=== PATIENT | female | born 1975 | race Caucasian/White ===

== ENCOUNTER 2017-06-29 07:40 | Outpatient (CLI) | payer SELFPAY | END 2017-06-29 07:41 | disposition home or self-care (01) | LOC: BICMAMMO 07:40 | PROVIDERS: ATTEND Family Medicine | DX: Z12.31 Encounter for screening mammogram for malignant neoplasm of breast (principal) | CPT/HCPCS: 77067; G0202 ==

== ENCOUNTER 2017-07-29 09:54 | Outpatient (CLI) | payer OTHER | END 2017-07-29 09:55 | disposition home or self-care (01) | LOC: BICMAMMO 09:54 | PROVIDERS: ATTEND Family Medicine | DX: R92.8 Other abnormal and inconclusive findings on diagnostic imaging of breast (principal) | CPT/HCPCS: G0206-RT; G0279 ==

== ENCOUNTER 2017-08-22 09:14 | Outpatient (CLI) | payer OTHER ==
[2017-08-22 10:14] LABS: Hemoglobin 12.9 g/dL (12.0-16.0); Mean Corpuscular HGB CONC 32.5 g/dL (32.0-36.0); Mean Corpuscular Hemoglobin 29.5 pg (27.0-31.0); Mean Corpuscular Volume 90.9 fl (81.0-99.0); Mean Platelet Volume 8.6 fL (7.4-10.4); Platelet Count 304 thou/uL (130-400); Red Blood Cell (RBC) Count 4.36 mill/uL (4.20-5.40); White Blood Cell (WBC) Count 9.5 thou/uL (4.8-10.8)
[2017-08-22 10:21] LABS: INR-International Normal Ratio 0.9; PTT 27.9 SEC (22.9-36.1); Prothrombin Time 12.5 SEC (12.0-14.7)
[2017-08-22 10:24] LABS: BHCG - Serum Negative (NEGATIVE); Pregs Control Background? CLEAR/WHITE (CLR/WHITE); Pregs Control Bar Appear? YES (CONTROL BAR)
[2017-08-22 10:35] LABS: ALT (SGPT) 11 U/L (8-55); AST (SGOT) 14 U/L (5-34); Albumin 4.2 g/dL (3.5-5.0); Alkaline Phosphatase 108 U/L (40-150); Anion Gap 13 mmol/L (10-20); BUN (Urea Nitrogen) 12 mg/dL (7.0-18.7); Bilirubin, Total 0.3 mg/dL (0.2-1.2); Calc. Creatinine Clearance 0 mL/min (70-130); Calcium 9.8 mg/dL (7.8-10.44); Carbon Dioxide 28 mmol/L (22-29); Cardiac Risk 3.1 (Less than 4.5); Chloride 102 mmol/L (98-107); Cholesterol 208 mg/dl (< 200 Desired); Estimated GFR-MDRD 81; Globulin 3.4 g/dL (2.4-3.5); Glucose 89 mg/dL (70-105); HDL Cholesterol 67 mg/dL (>60 Neg Risk); LDL Cholesterol, Calculated 124 mg/dL; Potassium 4.3 mmol/L (3.5-5.1); Protein, Total 7.6 g/dL (6.0-8.3); Sodium 139 mmol/L (136-145); Triglycerides 84 mg/dL (Less than 150)
== END 2017-08-22 09:15 | disposition home or self-care (01) ==
LOC: LABBT 09:14
PROVIDERS: ATTEND Internal Medicine Cardiovascular Disease
DX: Z01.818 Encounter for other preprocedural examination (principal); R93.1 Abnormal findings on diagnostic imaging of heart and coronary circulation; R07.9 Chest pain, unspecified
CPT/HCPCS: 80053; 80061; 84703; 85027; 85610; 85730; 93005; 93010

== ENCOUNTER 2017-08-24 05:42 | Day surgery (SDC) | payer OTHER ==
[2017-08-22 09:35] VITALS: BMI 49.0
[2017-08-24] MEDS ORDERED: Verapamil 5 MG/2 ML VIAL ONE (06:33)
[2017-08-24] MEDS ORDERED: Nitroglycerin 100MG/250ML BOT 250 ML ONE (06:33)
[2017-08-24] MEDS ORDERED: Heparin 10,000 UNITS/1 ML VIAL ONE (06:33)
[2017-08-24] MEDS ORDERED: Fentanyl 100 MCG/2 ML VIAL ONE (07:52)
[2017-08-24] MEDS ORDERED: Midazolam HCl 2 mg/2 ml Vial ONE (07:52)
== END 2017-08-24 13:21 | disposition home or self-care (01) ==
LOC: CCL 05:42
PROVIDERS: ATTEND Internal Medicine Cardiovascular Disease
DX: R07.89 Other chest pain (principal); R93.1 Abnormal findings on diagnostic imaging of heart and coronary circulation; I10 Essential (primary) hypertension; E66.9 Obesity, unspecified; Z68.42 Body mass index [BMI] 45.0-49.9, adult; Z98.51 Tubal ligation status; Z79.899 Other long term (current) drug therapy; Z98.891 History of uterine scar from previous surgery
CPT/HCPCS: 93458; 99152; C1769; J1644; J2250; J3010

== ENCOUNTER 2017-09-24 19:07 | Emergency (ER) | payer OTHER ==
[2017-09-24] MEDS ORDERED: Ibuprofen 200 MG TAB ONE (19:35)
--- NOTE | 2017-09-24 20:49 | RAD ---
FOUR VIEWS OF THE RIGHT KNEE 09/24/17 COMPARISON: None. HISTORY: Pain. FINDINGS: There is mild lateral compartment narrowing with osteophyte formation involving the lateral tibial pl ateau and lateral femoral condyle. There is moderate medial compartment narrowing with associated ost eophyte formation. There is moderate patellofemoral joint space narrowing and posterior patellar oste ophyte formation. No significant knee joint effusion. No displaced fracture or dislocation. IMPRESSION: Degenerative joint disease with no displaced fracture or evidence of dislocation seen. POS: [place]
== END 2017-09-24 20:20 | disposition home or self-care (01) ==
LOC: ERS 19:07
DX: M17.11 Unilateral primary osteoarthritis, right knee (principal); I10 Essential (primary) hypertension; E66.01 Morbid (severe) obesity due to excess calories; F17.210 Nicotine dependence, cigarettes, uncomplicated

== ENCOUNTER 2017-10-03 08:53 | Outpatient (CLI) | payer OTHER ==
[2017-10-03 09:46] LABS: Hemoglobin 12.6 g/dL (12.0-16.0); Mean Corpuscular HGB CONC 31.6 g/dL (32.0-36.0); Mean Corpuscular Hemoglobin 28.8 pg (27.0-31.0); Mean Corpuscular Volume 91.1 fl (81.0-99.0); Mean Platelet Volume 8.8 fL (7.4-10.4); Platelet Count 286 thou/uL (130-400); RBC Distribution Width 13.9 % (11.5-14.5); Red Blood Cell (RBC) Count 4.39 mill/uL (4.20-5.40); White Blood Cell (WBC) Count 6.8 thou/uL (4.8-10.8)
[2017-10-03 10:02] LABS: Anion Gap 10 mmol/L (10-20); BUN (Urea Nitrogen) 15 mg/dL (7.0-18.7); Calc. Creatinine Clearance 0 mL/min (70-130); Calcium 9.3 mg/dL (7.8-10.44); Carbon Dioxide 26 mmol/L (22-29); Chloride 104 mmol/L (98-107); Estimated GFR-MDRD 74; Glucose 101 mg/dL (70-105); Potassium 4.2 mmol/L (3.5-5.1); Sodium 136 mmol/L (136-145)
== END 2017-10-03 08:54 | disposition home or self-care (01) ==
LOC: LABBT 08:53
PROVIDERS: ATTEND Obstetrics & Gynecology
DX: Z01.812 Encounter for preprocedural laboratory examination (principal); N92.0 Excessive and frequent menstruation with regular cycle; N94.6 Dysmenorrhea, unspecified; N83.201 Unspecified ovarian cyst, right side; N93.9 Abnormal uterine and vaginal bleeding, unspecified
CPT/HCPCS: 80048; 85027; 86850; 86900; 86901

== ENCOUNTER 2017-10-03 09:15 | Inpatient (IN) | payer OTHER ==
--- NOTE | 2017-10-03 08:59 | HP ---
DATE OF PLANNED PROCEDURE: 10/04/2017 PREOPERATIVE DIAGNOSES: Menorrhagia, fibroid uterus and dysmenorrhea. HISTORY OF PRESENT ILLNESS: Ms. Ashley Adamson is a 42-year-old G2, P2-0-0-2, who was referred from [facility] for abnormal uterine bleeding and dysmenorrhea. The patient gives a long histor y of heavy bleeding, passing clots feeling rundown during her menstrual cycles and dysmenorrhea that prevents her from completing her activities of daily living. The patient has failed medical manageme nt with combined oral contraceptive pills as well as Depo-Provera and now strongly desires definitive management with hysterectomy. The patient has a history of bilateral tubal ligation and a known his tory of fibroid uterus. Currently during her menstrual cycle, she will use 36 super pads during the 5-day period. The patient had an endometrial biopsy completed in our office that was suggestive of a n endocervical polyp as well as weakly proliferative endometrium with no reported hyperplasia or naeem gnancy. An office ultrasound describes uterus that is 9 x 4.5 cm and endometrium is 8 mm thick at th e time of ultrasound and two normal appearing ovaries with the exception of a small simple appearing ovarian 3 cm cyst on the right ovary noted back in June. Scheduling of the patient's hysterectom y was delayed for cardiac clearance, which was completed with Dr. Rizo following the heart catheter ization and evaluation. The patient is low cardiac risk for her surgery. PAST MEDICAL HISTORY: Obesity, hypertension, and migraines. CURRENT MEDICATIONS: Amlodipine 5 mg daily, lisinopril/hydrochlorothiazide 20/25 mg 1 p.o. daily, to piramate 100 mg once a day. ALLERGIES: No known drug and no latex allergies identified. PAST SURGICAL HISTORY: section x1, bilateral tubal ligation, cholecystectomy, and heart cat heterization. SOCIAL HISTORY: The patient has a history of incarceration approximately 2-3 years ago. Does not us e alcohol or drugs. She is and smokes 1 pack or less a day. FAMILY HISTORY: Significant for hypertension in her mother, father, and sister and non-small cell ca rcinoma of the lung in her mother. OBSTETRICAL HISTORY: G2, P1 with one section and one vaginal delivery. GYNECOLOGIC HISTORY: Most recent Pap smear, ASCUS but HPV negative on 06/2017. No known history of PID or STD, current contraception, bilateral tubal ligation. REVIEW OF SYSTEMS: Negative except as stated above. PHYSICAL EXAMINATION: VITAL SIGNS: Blood pressure 124/76, weight 328 pounds with a BMI of 52, respiratory rate 18. GENERAL: No acute distress. Alert and oriented. CARDIOVASCULAR: Regular rate and rhythm. LUNGS: Nonlabored breathing. ABDOMEN: Obese, soft. No hepatosplenomegaly, no abdominal masses found on exam; however, exam is li mited by obese body habitus. GENITOURINARY: Normal external female genitalia, normal vaginal mucosa. No abnormal vaginal dischar ge, no cervical lesions. Uterus is mobile, nontender, no adnexal masses; however, exam limited by bone bitus. MUSCULOSKELETAL: Normal range of motion. NEUROLOGIC: Grossly normal, alert and oriented x3. SKIN: No rashes, clubbing or cyanosis. DIAGNOSTIC STUDIES: 1. Pap smear ASCUS HPV negative. 2. Endometrial biopsy with weakly proliferative endometrium and endocervical polyp. Ultrasound with uterus 9 x 4.5 cm with small fibroid and 3 cm right ovarian simple appearing cyst. ASSESSMENT AND PLAN: Ms. Ashley Adamson is a 42-year-old with history of tubal ligation with menorr hagia and dysmenorrhea with failed medical management and desires definitive treatment with robotic a ssist total laparoscopic hysterectomy and bilateral salpingectomy. We discussed ovarian preservation if her ovaries appear within normal limits at the time of surgery. We have discussed other medical management options including Mirena IUD and other hormonal options; however, the patient declines and requests surgery. The patient understands the risk of surgery to include, but not limited to bleedi ng, infection, damage to intraabdominal or pelvic organs, possible need for emergent laparotomy, inab ility to fully diagnose and treat all conditions at the time of surgery, possible need for future med ical and/or surgical management, possible need for blood products, antibiotics and inherent risk of a nesthesia which will be discussed with her in detail tomorrow on the day of surgery by the Anesthesia team. The patient's questions have been answered to her satisfaction, and she desires to proceed wi th the procedure as listed above.
[2017-10-03 09:40] VITALS: BMI 49.3
[2017-10-04] MEDS ORDERED: Midazolam HCl 2 mg/2 ml Vial ONE (06:03)
[2017-10-04] MEDS ORDERED: Fentanyl 250 MCG/5 ML VIAL ONE (06:03)
[2017-10-04] MEDS ORDERED: CEFAZOLIN/Water 2 GM/20 ML SYRINGE ONE (06:21)
[2017-10-04] MEDS ORDERED: Bupivacaine HCl 0.5%/Epinephrine 1:200,000/PF 30 ml Vial ONE (06:53)
[2017-10-04] MEDS ORDERED: Promethazine HCl 25 MG/ML VIAL SLOW IVP PRN (09:20)
[2017-10-04] MEDS ORDERED: Ondansetron HCl/PF 4 MG/2 ML Vial IVP PRN ×2 (09:20→12:03)
[2017-10-04] MEDS ORDERED: Promethazine HCl 25 MG/ML VIAL IM PRN ×2 (09:20→12:03)
[2017-10-04] MEDS ORDERED: Fentanyl 100 MCG/2 ML VIAL ONE ×2 (10:01→10:26)
[2017-10-04] MEDS ORDERED: Promethazine HCl 25 MG/ML VIAL ONE (10:03)
[2017-10-04] MEDS ORDERED: Ketorolac Tromethamine 30 MG/ML VIAL ONE (10:33)
--- NOTE | 2017-10-04 10:46 | OP ---
DATE OF PROCEDURE: 10/04/2017 PREOPERATIVE DIAGNOSES: 1. Menorrhagia. 2. Dysmenorrhea. 3. Morbid obesity. 4. Desires definitive surgical management. POSTOPERATIVE DIAGNOSES: 1. Menorrhagia. 2. Dysmenorrhea. 3. Morbid obesity. 4. Desires definitive surgical management. PROCEDURE PERFORMED: Robotic-assisted total laparoscopic hysterectomy with bilateral salpingectomy a nd lysis of adhesions. SURGEON: Leroy Griffith D.O. DIRECTOR INSTITUTION: [facility] M.D. ANESTHESIA: General endotracheal. URINE OUTPUT: 250 mL. ESTIMATED BLOOD LOSS: 50 mL. COMPLICATIONS: None. INTRAOPERATIVE FINDINGS: 1. Morbid obesity with central obesity. 2. Ventral hernia with omentum noted within the hernia sac, omental adhesions to the anterior abdomi nal wall, enlarged uterus, normal tubes, segments and ovaries. PROCEDURE DETAILS: The patient was taken back to the OR with IV fluids running. Once she was in the OR, she was placed in dorsal supine position and general anesthesia was obtained. Once the patient was asleep, she was placed in low dorsal lithotomy position and the abdomen and vagina were prepped a nd draped in normal fashion for gynecologic laparoscopy. A Urrutia catheter was placed into the bladde r and drained approximately 200 mL. A Geri syringe was attached to the tip of the Urrutia catheter t o use for bladder manipulation if needed during the case. An operative speculum was placed into the vagina with normal vaginal findings noted. The anterior lip of the cervix was grasped with a single tooth tenaculum and the uterus sounded to approximately 8 cm. The cervix was then serially dilated t o allow for passage of a CASE Murphy manipulator tip. The CASE Murphy manipulator was assembled with an 8 cm tip and a 4 cm cup and was placed into the vagina and uterus in normal fashion with the intrauteri ne and vaginal balloons inflated. The speculum and tenaculum were removed. The surgeon's gloves wer e changed and attention was turned to laparoscopic portion of the case. Beginning at the umbilicus, a 12 mm skin incision was made after local anesthesia was placed underneath the skin. A Veress needl e was placed into this incision and the peritoneum was insufflated without difficulty. After the per itoneal cavity was entered a bariatric link trocar was placed through this port incision into the per itoneal cavity. The laparoscope was then placed through this port. [facility] and the above findings were noted. Under direct visualization, [address] d, 3 robotic ports both right and left lower quadrant 8 mm ports and a left upper quadrant 8 mm port . These were all placed under direct visualization after the skin was injected with local anesthesia . 8 mm skin incisions were made and trocars were placed without difficulty. A right upper quadrant 11 mm assistant to the dean trocar was placed in similar fashion. Next, the robotic arms were docked to the stan ent's bedside. The #2 and 3 arms were attached to the fenestrated bipolar and monopolar cautery instr 30 Second Showcase. These instruments were advanced under direct visualization in the pelvis without difficulty. The left upper quadrant port was not attached to robotic arm and it was saved in the event that an additional third arm was needed for retraction of bowel or omentum later in the case. The procedure began with lysis of adhesions, primarily in the midline with dense omental adhesions noted into a her blas sac in the midline below the umbilicus. After the omental adhesions were taken down, the hystere ctomy portion of the procedure began. Beginning on the patient's left side, the left fallopian tube segment at the fimbriated end was elevated, grasped and dissected away from the ovary. The specimen was removed for pathologic review. Next utero-ovarian ligament was cauterized and incised, freeing t he ovary away from the uterus falling away at the left adnexa. Next, the round ligament on the patie nt's left side was cauterized, incised, and divided into anterior and posterior leafs. The anterior and posterior leaves were dissected down towards the level of the uterine artery. The uterine artery was then cauterized, incised, and divided with hemostasis noted. The anterior leaf was then taken d own towards the lower uterine segment near the cervix in the planned colpotomy site. The bladder was back filled with normal saline to allow for demarcation of the bladder flap plane from the cervix an d planned colpotomy site. Filmy adhesions were taken down between the cervicovaginal junction and pl anned colpotomy site. The bladder was then deflated and the bladder flap was created with fine disse ction technique across the cervix and planned dissection area. The bladder was gently dissected away from the planned colpotomy site. In similar fashion attention was turned to the contralateral side. The right fimbriated end was elevated off the ovary and dissected away from the ovary. The fallopi an tube segment was removed for pathologic review. The utero-ovarian ligament on the patient's right side was cauterized and divided with ovary falling away to the right pelvic sidewall, the round liga ment on the patient's right side was cauterized, incised, and divided into anterior and posterior diane fs. The broad ligament was then dissected down towards the uterine artery which was then cauterized and divided. The blood supply taken down bilaterally, the bladder flap was completed on the patient' s right side and the bladder was gently dissected away from the planned colpotomy site. The bladder was back filled one more time and the bladder noted to be well away from the planned colpotomy site a nd cuff closure. Next, the colpotomy began anteriorly with monopolar scissors. The CASE Murphy cup was immediately identified and was traced circumferentially with hemostasis noted throughout the colpoto my portion of the procedure. After the uterine specimen was freed, it was retracted into the vagina and kept there for pneumoperitoneum for the remainder of the case. The vaginal cuff and surgical ped icles was copiously irrigated. Any small areas of bleeding were controlled with Bovie cauterization. The vaginal cuff was then closed with Stratafix suture in 2 layers with hemostasis noted. The end of the vaginal cuff closure, the vaginal cuff and pedicles were irrigated again and suctioned dry. N o areas of bleeding were noted. The bladder was back filled one last time and suctioned empty with n o disruption of bladder integrity noted. A layer of Allen was applied to the vaginal cuff. The joe gical pedicles and the omentum with no areas of bleeding noted. All instruments were then removed fr om the abdominal cavity. The supraumbilical port site was closed at the fascial layer with Vicryl jorgensen ture. All 5 skin incisions were closed with Monocryl suture and dressed with Dermabond dressing. Th e patient was cleaned and dried. The vagina was inspected with no bleeding noted. The patient was t aken out of lithotomy position, extubated, and transferred to the recovery room in good condition.
[2017-10-04] MEDS ORDERED: Simethicone Chewable 80 MG TAB PO PRN (12:03)
[2017-10-04] MEDS ORDERED: Acetaminophen 325 MG TAB PO PRN (12:03)
[2017-10-04] MEDS ORDERED: Sodium Chloride 0.9% 1,000 ML IV SCH (12:03)
[2017-10-04] MEDS ORDERED: diphenhydrAMINE 25 MG CAP PO PRN (12:03)
[2017-10-04] MEDS ORDERED: Morphine 5 MG/ML SYRINGE SLOW IVP PRN (12:03)
[2017-10-04] MEDS ORDERED: Meperidine HCl/PF 25 MG/ML VIAL SLOW IVP PRN (12:03)
[2017-10-04] MEDS ORDERED: Bisacodyl 10 MG SUPP PR PRN (12:03)
[2017-10-04] MEDS ORDERED: Acetaminophen/Codeine 30-300mg Tablet PO PRN (12:03)
[2017-10-04] MEDS ORDERED: Zolpidem Tartrate 5 MG TAB PO PRN (12:03)
[2017-10-04] MEDS: Ketorolac Tromethamine 30 MG/ML VIAL IVP SCH ×3 (13:37→23:36)
[2017-10-04] MEDS ORDERED: Succinylcholine Chloride 20 MG/ML 10 ml SYRINGE FS ONE (14:58)
[2017-10-04] MEDS ORDERED: Lidocaine 1% PF 5 ML VIAL ONE (14:58)
[2017-10-04] MEDS ORDERED: Glycopyrrolate 0.2 MG/ML 5 ML SYRINGE ONE (14:58)
[2017-10-04] MEDS ORDERED: Dexamethasone 20 MG/5 ML VIAL ONE (14:58)
[2017-10-04] MEDS ORDERED: Propofol 200 MG/20 ML VIAL ONE (14:58)
[2017-10-04] MEDS ORDERED: Ondansetron HCl/PF 4 MG/2 ML Vial ONE (14:58)
[2017-10-04] MEDS: Acetaminophen/Codeine 30-300mg Tablet PO PRN ×2 (18:39→23:41)
[2017-10-04] MEDS ORDERED: Atorvastatin Calcium 20 MG TAB PO SCH (21:00)
[2017-10-05 06:04] LABS: Hemoglobin 10.8 g/dL (12.0-16.0); Mean Corpuscular HGB CONC 32.6 g/dL (32.0-36.0); Mean Corpuscular Hemoglobin 29.1 pg (27.0-31.0); Mean Corpuscular Volume 89.2 fl (81.0-99.0); Mean Platelet Volume 8.9 fL (7.4-10.4); Platelet Count 228 thou/uL (130-400); RBC Distribution Width 13.7 % (11.5-14.5); Red Blood Cell (RBC) Count 3.73 mill/uL (4.20-5.40); White Blood Cell (WBC) Count 9.4 thou/uL (4.8-10.8)
[2017-10-05] MEDS: Ketorolac Tromethamine 30 MG/ML VIAL IVP SCH (06:26)
[2017-10-05] MEDS: Acetaminophen/Codeine 30-300mg Tablet PO PRN (06:27)
--- NOTE | 2017-10-05 08:18 | PDOC.EVN ---
Event Note - Event Note Event Note: S: no concerns, doing well, eating regular food, min pain, no bleeding, passing gas and urinating well O: Vital Signs (12 hours) Temp Pulse Resp BP Pulse Ox 10/04/17 23:49 98.4 F 88 18 114/56 L 10/04/17 20:30 98.5 F 85 18 171/77 H 98 Weight Weight 315 lb Gen: NAD A and O, sitting up eating breakfast Chest: nonlabored breathing Abd: obese, NTTP, inc CIDI x 5 Ext: normal ROM A/P: POD#1 MARGO PATTERSON and MICHAEL, intraop findings discussed. Plan for DC today.
[2017-10-05 09:00] VITALS: BP 137/71; TEMP 98
[2017-10-05] MEDS ORDERED: Lisinopril/Hydrochlorothiazide 20/25 mg Tablet PO SCH (09:00)
[2017-10-05] MEDS ORDERED: Amlodipine 5 MG TAB PO SCH (09:00)
[2017-10-09] MEDS ORDERED: Ibuprofen 800 MG TAB PO SCH (22:00)
== END 2017-10-05 09:30 | disposition home or self-care (01) | DRG 742 ==
LOC: SURG A 10-04 05:41 → 3SE 10-04 11:32
PROVIDERS: ADMIT Obstetrics & Gynecology; ATTEND Obstetrics & Gynecology
PROC: 0UT98ZZ Resection of Uterus, Via Natural or Artificial Opening Endoscopic (ICD-10-PCS; principal; 2017-10-04)
PROC: 0UT78ZZ Resection of Bilateral Fallopian Tubes, Via Natural or Artificial Opening Endoscopic (ICD-10-PCS; 2017-10-04)
PROC: 0DNU4ZZ Release Omentum, Percutaneous Endoscopic Approach (ICD-10-PCS; 2017-10-04)
PROC: 8E0W8CZ Robotic Assisted Procedure of Trunk Region, Via Natural or Artificial Opening Endoscopic (ICD-10-PCS; 2017-10-04)
DX: N94.6 Dysmenorrhea, unspecified (principal); Z68.42 Body mass index [BMI] 45.0-49.9, adult; E66.01 Morbid (severe) obesity due to excess calories; N83.201 Unspecified ovarian cyst, right side; N92.0 Excessive and frequent menstruation with regular cycle; Z90.49 Acquired absence of other specified parts of digestive tract; F17.210 Nicotine dependence, cigarettes, uncomplicated
CPT/HCPCS: 36415; 85027; 88307; J2270; A4216; J0670; J1100; J1885; J2001; J2250; J2405; J2550; J2704; J3010

== ENCOUNTER 2018-04-15 18:49 | Observation (INO) | payer MEDICAID, OTHER ==
[2018-04-15 19:49] LABS: #Basophils 0.1 thou/uL (0.0-0.2); #Eosinphils 0.1 thou/uL (0.0-0.7); #Lymphocytes 1.7 thou/uL (1.20-3.40); #Monocytes 0.4 thou/uL (0.11-0.59); #Neutrophils 6.4 thou/uL (1.40-6.50); %Basophils 0.6 % (0.0-1.0); %Lymphocytes 19.1 % (21.0-51.0); %Monocytes 4.9 % (0.0-10.0); %Neutrophils 74.4 % (42.0-75.0); Hemoglobin 14.1 g/dL (12.0-16.0); Mean Platelet Volume 8.8 fL (7.4-10.4); Platelet Count 234 thou/uL (130-400); RBC Distribution Width 12.7 % (11.5-14.5); Red Blood Cell (RBC) Count 4.55 mill/uL (4.20-5.40); White Blood Cell (WBC) Count 8.6 thou/uL (4.8-10.8)
--- NOTE | 2018-04-15 19:49 | RAD ---
PORTABLE UPRIGHT FRONTAL CHEST RADIOGRAPH 04/15/18 COMPARISON: 10/30/14 HISTORY: Diaphoresis, shortness of breath and dizziness. FINDINGS: The lungs are clear. Heart and mediastinal contours are unremarkable. IMPRESSION: No acute findings. POS: [facility]
[2018-04-15] MEDS ORDERED: Nitroglycerin 2% Ointment 1 INCH/1 GM Packet ONE (20:03)
[2018-04-15] MEDS ORDERED: Acetaminophen 500 MG TAB ONE (20:03)
[2018-04-15 20:11] LABS: ALT (SGPT) 16 U/L (8-55); AST (SGOT) 18 U/L (5-34); Alkaline Phosphatase 110 U/L (40-150); Anion Gap 14 mmol/L (10-20); BUN (Urea Nitrogen) 11 mg/dL (7.0-18.7); Bilirubin, Total 0.4 mg/dL (0.2-1.2); CK (CPK) 131 U/L (29-168); Calc. Creatinine Clearance 0 mL/min (70-130); Calcium 9.4 mg/dL (7.8-10.44); Carbon Dioxide 26 mmol/L (22-29); Chloride 105 mmol/L (98-107); Estimated GFR-MDRD 54; Globulin 3.3 g/dL (2.4-3.5); Glucose 104 mg/dL (70-105); Lipase 22 U/L (8-78); Potassium 3.5 mmol/L (3.5-5.1); Protein, Total 7.3 g/dL (6.0-8.3); Sodium 141 mmol/L (136-145)
[2018-04-15 20:15] LABS: Troponin I Less than 0.010 ng/mL (< 0.028)
[2018-04-15] MEDS ORDERED: Morphine 2 MG/ML SYRINGE ONE (20:48)
--- NOTE | 2018-04-15 21:10 | PDOC.FPRHP ---
- History of Present Illness Chief Complaint: Chest pain History of Present Illness: This is a 43 yo female with a PMH of HTN, HLD, and obesity who present to the ED with a cc of chest pain. 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 She states that the pain is a 6/10 at its worst. She describes the pain as a pressure and reports that she has never had a pain like this before. Pt. Also reports SOB and diaphoresis associated with this pain. She denies n/v. Pt reports not taking her medications since December due to losing her insurance. Pt. Had a heart cath without stent placement in [facility] of this year and was found to have 40-50% stenosis of the LAD and normal LV function at that time. Plan at that time was to optimize medical therapy and add a statin. Pt. Was seen outpt after the stent by by Dr. Vlad Salas. - Allergies/Adverse Reactions Allergies Allergy/AdvReac Type Severity Reaction Status Date / Time No Known Allergies Allergy Verified 10/03/17 09:40 - Home Medications Medication Instructions Recorded Confirmed Type Amlodipine [Norvasc] 5 mg PO QAM 08/22/17 10/03/17 History Aspirin/Caffeine [Nasrin Back & 1 tab PO QPM 08/22/17 10/03/17 History Body Caplet] Lisinopril/Hydrochlorothiazide 1 tab PO QAM 08/22/17 10/03/17 History [Lisinopril-Hctz 20-25 mg Tab] Atorvastatin Calcium [Lipitor] 20 mg PO QPM 10/03/17 10/03/17 History Acetaminophen W/ Codeine 1 tab PO Q4H PRN tab 10/05/17 Rx [Acetaminophen/Codeine #3] Ibuprofen [Motrin] 800 mg PO Q8HR tab 10/05/17 Rx - History PMHx:HTN, HLD, morbid obesity PSHx: Hysterectomy, cholecystecomy, FHx: non contributory Social: Smokes 1.5 packs per day, 45 year smoking history - Review of Systems General: reports: other (Shaking, diaphoresis). denies: fever/chills, weight/ appetite/sleep changes Eyes: denies: eye pain, vision changes ENT: denies: nasal congestion, rhinorrhea Respiratory: reports: shortness of breath. denies: cough, congestion Cardiovascular: reports: chest pain, edema. denies: palpitation Gastrointestinal: denies: nausea, vomiting, diarrhea, constipation Skin: denies: rashes, lesions Musculoskeletal: denies: pain, tenderness, stiffness Neurological: denies: numbness, syncope Psychological: denies: anxiety, depression - Vital signs BP: 164/100 HR: 91 RR: 18 Tmax: 98.4 Pox: 98% on RA Wt: 136.08 - Physical Exam Constitutional: NAD, awake, alert and oriented, other (Morbidly obese) HEENT: normocephalic and atraumatic, EOMI, MMM Neck: supple, FROM Chest: no-tender to palpation, no lesions Heart: RRR, normal S1/S2, no murmurs/rubs/gallops, other (1+ pitting edema to mid calf) Lungs: no respiratory distress (good chest rise, exam limited by body habitus) Abdomen: soft, non-tender, bowel sounds present Musculoskeletal: normal structure, normal tone Neurological: CN II-XII intact, normal sensation Skin: good turgor, capillary refill <2 seconds Heme/Lymphatic: no unusual bruising or bleeding, no purpura Psychiatric: normal mood and affect, intact recent and remote memory FMR H&P: Results - Labs Result Diagrams: 04/15/18 19:40 04/15/18 19:40 Lab results: WBC 8.6 thou/uL (4.8-10.8) 04/15/18 19:40 Hgb 14.1 g/dL (12.0-16.0) 04/15/18 19:40 Hct 42.7 % (36.0-47.0) 04/15/18 19:40 MCV 94.0 fL (78.0-98.0) 04/15/18 19:40 Plt Count 234 thou/uL (130-400) 04/15/18 19:40 Neutrophils % 74.4 % (42.0-75.0) 04/15/18 19:40 Sodium 141 mmol/L (136-145) 04/15/18 19:40 Potassium 3.5 mmol/L (3.5-5.1) 04/15/18 19:40 Chloride 105 mmol/L (98-107) 04/15/18 19:40 Carbon Dioxide 26 mmol/L (22-29) 04/15/18 19:40 BUN 11 mg/dL (7.0-18.7) 04/15/18 19:40 Creatinine 1.10 mg/dL (0.6-1.1) 04/15/18 19:40 Glucose 104 mg/dL (70-105) 04/15/18 19:40 Calcium 9.4 mg/dL (7.8-10.44) 04/15/18 19:40 Total Bilirubin 0.4 mg/dL (0.2-1.2) 04/15/18 19:40 AST 18 U/L (5-34) 04/15/18 19:40 ALT 16 U/L (8-55) 04/15/18 19:40 Alkaline Phosphatase 110 U/L (40-150) 04/15/18 19:40 Creatine Kinase 131 U/L (29-168) 04/15/18 19:40 CK-MB (CK-2) 1.0 ng/mL (0-6.6) 04/15/18 19:40 Serum Total Protein 7.3 g/dL (6.0-8.3) 04/15/18 19:40 Albumin 4.0 g/dL (3.5-5.0) 04/15/18 19:40 Lipase 22 U/L (8-78) 04/15/18 19:40 - EKG Interpretation EKG: NSR, no st depression FMR H&P: A/P - Problem List (1) Stable angina Current Visit: Yes Status: Acute Code(s): I20.8 - OTHER FORMS OF ANGINA PECTORIS (2) HTN (hypertension) Current Visit: Yes Status: Acute Code(s): I10 - ESSENTIAL (PRIMARY) HYPERTENSION (3) HLD (hyperlipidemia) Current Visit: Yes Status: Acute Code(s): E78.5 - HYPERLIPIDEMIA, UNSPECIFIED (4) Morbid (severe) obesity due to excess calories Current Visit: Yes Status: Acute Code(s): E66.01 - MORBID (SEVERE) OBESITY DUE TO EXCESS CALORIES - Plan This is a 43 yo female with a PMH of HTN, HLD, and obesity Typical chest pain likely angina r/o ACS -Admit to tele obs overnight. Troponin neg x1, trend x2. EKG in ER shows NSR with no st elevation. We will plan to run a stress test tomorrow. Pt. Will be NPO after midnight and we will hold any beta blockers. Checking mag and BNP due to pitting edema in BLE. Nitro PRN chest pain. HTN -Lipitor HLD -lisinopri/HCTZ, amlodipine Nicotine use disorder -nicotine patch Code: Full Prophylaxis: SCDs Family: sister at bedside and plan discussed with her Disposition: home in 1-2 days FMR H&P: Upper Level - Pertinent history CC: Chest pain HPI: 43 yo WF PMH known CAD with LAD stenosis 40-50% on cath in August 2017. 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 States her initial symptoms included diaphoresis, light headedness, and substernal chest pain. Pain improved with nitro. now she reports 2/10 chest pressure. Has not been taking medications since she lost her insurance. Smokes 1PPD. ER: Morphine 2mg, nitro 1in, ASA 324mg, APAP 1g. Labs, CXR, EKG. - Pertinent findings Vitals: BP 122/64, Pulse 71, RR 18, SpO2 95/RA, WT 136 kg GEN: NAD, obese, LUNG: CTA-B, normal effort. CV: RRR, no murmur Extremity: 1+ pitting to midcalf. Labs: Cr 1.10 (baseline 0.8) GFR 54, trop negative x1. CXR: no acute processes EKG: rate 93 NSR, normal NC interval, non-specific ST changes, QTc 482. - Plan Date/Time: 04/15/182105 I, Paul Fajardo MD, have evaluated this patient and agree with findings/plan as outlined by agriculture internship resident. Pertinent changes/additions are listed here. 1. Typical chest pain with known CAD: troponins with EKGx3, check Mg and FLP. schedule for NM stress test tomorrow morning. will discuss case with roll contour grinder cardiology tomorrow since patient has known CAD. HEART score 4. 2. CAD: start high intensity statin now, CASSIDY inhibitor now, and beta andrew after stress test. see #1 for remainder of plan 3. Lower extremity swelling: check BNP, will order TTE if elevated. Normal LVEF during cath in August. 4. CKD 3: will repeat BMP in the morning. Give 1L NS at 100/hr 5. obesity: normal glucose, would advise outpatient evaluation for DM. 6. Diet: HH, NPO at midnight. 7. PPx: SCD 8. Code: full Discussed with Dr. Valenzuela.
[2018-04-15] MEDS ORDERED: Sodium Chloride 0.9% 1,000 ML IV SCH (22:55)
[2018-04-15] MEDS ORDERED: Nitroglycerin 0.4 MG TAB (25 Tab Bottle) SL PRN (22:55)
[2018-04-15] MEDS ORDERED: Ondansetron ODT 4 MG TAB PO PRN (22:55)
[2018-04-15 22:56] LABS: Troponin I Less than 0.010 ng/mL (< 0.028)
[2018-04-15] MEDS ORDERED: Nicotine 21 MG PATCH TD SCH (23:00)
[2018-04-15] MEDS ORDERED: Atorvastatin Calcium 40 MG TAB PO SCH (23:00)
[2018-04-16 02:14] LABS: Troponin I Less than 0.010 ng/mL (< 0.028)
[2018-04-16 02:23] LABS: ALT (SGPT) 13 U/L (8-55); AST (SGOT) 15 U/L (5-34); Albumin 3.2 g/dL (3.5-5.0); Alkaline Phosphatase 89 U/L (40-150); Anion Gap 10 mmol/L (10-20); BUN (Urea Nitrogen) 15 mg/dL (7.0-18.7); Bilirubin, Total Less than 0.2 mg/dL (0.2-1.2); Calc. Creatinine Clearance 227 mL/min (70-130); Calcium 8.8 mg/dL (7.8-10.44); Carbon Dioxide 26 mmol/L (22-29); Cardiac Risk 3.4 (Less than 4.5); Chloride 109 mmol/L (98-107); Cholesterol 142 mg/dl (< 200 Desired); Estimated GFR-MDRD 72; Globulin 2.9 g/dL (2.4-3.5); Glucose 115 mg/dL (70-105); HDL Cholesterol 42 mg/dL (>60 Neg Risk); LDL Cholesterol, Calculated 75 mg/dL; Potassium 3.3 mmol/L (3.5-5.1); Protein, Total 6.1 g/dL (6.0-8.3); Sodium 142 mmol/L (136-145); Triglycerides 126 mg/dL (Less than 150)
[2018-04-16] MEDS ORDERED: Amlodipine 5 MG TAB PO SCH (09:00)
[2018-04-16] MEDS: Amlodipine 5 MG TAB PO SCH (09:13)
[2018-04-16] MEDS: Famotidine 20 MG TAB PO SCH ×2 (09:13→20:21)
[2018-04-16] MEDS: Lisinopril/Hydrochlorothiazide 10 mg/12.5 mg Tablet PO SCH (09:13)
--- NOTE | 2018-04-16 09:19 | PDOC.FM ---
- Subjective Subjective: NAEO. Patient resting comfortably. States she has off and on pressure like sensation in her chest. No further pain or SOB. Recent cath 08/24/2017 showing mid LAD stenosis 40-50%. - Objective Vital Signs & Weight: Vital Signs (12 hours) Temp Pulse Resp BP Pulse Ox 04/16/18 07:17 98.1 F 72 24 H 143/74 H 94 L 04/16/18 04:25 97.9 F 69 14 123/68 94 L 04/15/18 22:55 95 04/15/18 22:48 98.5 F 81 14 138/65 95 Weight Weight 169.009 kg I&O: 04/15/18 04/16/18 04/17/18 06:59 06:59 06:59 Intake Total 707 Output Total 600 Balance 107 Result Diagrams: 04/15/18 19:40 04/16/18 01:33 Phys Exam - Physical Examination Constitutional: NAD HEENT: moist MMs Respiratory: no wheezing, no rales, no rhonchi, clear to auscultation bilateral fair air movement Cardiovascular: RRR, no significant murmur Pain not reproducable. Gastrointestinal: soft, non-tender Musculoskeletal: no edema Neurological: non-focal, normal sensation, moves all 4 limbs Psychiatric: normal affect, A&O x 3 Dx/Plan (1) Stable angina Code(s): I20.8 - OTHER FORMS OF ANGINA PECTORIS Status: Acute Plan: plan for stress today. No EKG changes, nml trops. Pain resolved. History of CAD. Place patient back on her home meds (which she has been off for few months) Consult cardiology. (2) CAD (coronary artery disease) Code(s): I25.10 - ATHSCL HEART DISEASE OF [place] CORONARY ARTERY W/O ANG PCTRS Status: Chronic Qualifiers: Coronary Disease-Associated Artery/Lesion type: [place] artery [place] vs. transplanted heart: [place] heart Associated angina: with stable angina Qualified Code(s): I25.118 - Atherosclerotic heart disease of [place] coronary artery with other forms of angina pectoris (3) Tobacco abuse Code(s): Z72.0 - TOBACCO USE Status: Chronic Plan: encourage smoking cessation. cont nicoderm patch (4) HLD (hyperlipidemia) Code(s): E78.5 - HYPERLIPIDEMIA, UNSPECIFIED Status: Chronic Plan: cont high intensity statin. (5) HTN (hypertension) Code(s): I10 - ESSENTIAL (PRIMARY) HYPERTENSION Status: Chronic Qualifiers: Hypertension type: essential hypertension Qualified Code(s): I10 - Essential (primary) hypertension Plan: restart home meds appears fairly well controlled at this time (6) CKD (chronic kidney disease) Code(s): N18.9 - CHRONIC KIDNEY DISEASE, UNSPECIFIED Status: Chronic Qualifiers: Chronic kidney disease stage: stage 2 (mild) Qualified Code(s): N18.2 - Chronic kidney disease, stage 2 (mild) (7) Morbid (severe) obesity due to excess calories Code(s): E66.01 - MORBID (SEVERE) OBESITY DUE TO EXCESS CALORIES Status: Chronic (8) Hypokalemia Code(s): E87.6 - HYPOKALEMIA Status: Acute Plan: replete today.
[2018-04-16] MEDS ORDERED: Potassium Chloride 20 MEQ TAB PO SCH (09:30)
[2018-04-16] MEDS ORDERED: Aspirin 81 mg Enteric Coated Tablet PO SCH (11:15)
[2018-04-16] MEDS ORDERED: Regadenoson 0.4 MG/5 ML SYRINGE ONE (13:15)
[2018-04-16] MEDS: Acetaminophen 325 MG TAB PO PRN (20:21)
[2018-04-16] MEDS ORDERED: Atorvastatin Calcium 40 MG TAB PO SCH (21:00)
[2018-04-16] MEDS: Nicotine 21 MG PATCH TD SCH (21:01)
[2018-04-16] MEDS: diphenhydrAMINE 25 MG CAP PO PRN (22:18)
--- NOTE | 2018-04-17 05:17 | PDOC.FM ---
- Subjective Subjective: Patient is feeling well this morning. States her chest pain has resolved. She is scheduled for the second part of her stress test today. - Objective Vital Signs & Weight: Vital Signs (12 hours) Temp Pulse Resp BP Pulse Ox 04/17/18 04:20 98.3 F 78 16 174/86 H 94 L 04/17/18 04:19 94 L 04/16/18 18:41 98.0 F 93 24 H 146/79 H 94 L Weight Weight 166.877 kg I&O: 04/15/18 04/16/18 04/17/18 06:59 06:59 06:59 Intake Total 707 1661 Output Total 600 Balance 107 1661 Result Diagrams: 04/15/18 19:40 04/16/18 01:33 <Ashley Andrews - Last Filed: 04/17/18 08:18> - Objective Vital Signs & Weight: Vital Signs (12 hours) Temp Pulse Resp BP BP Pulse Ox 04/17/18 12:00 92 18 133/64 95 04/17/18 11:26 97 04/17/18 11:24 92 16 04/17/18 09:17 79 04/17/18 07:13 98.5 F 79 24 H 138/88 92 L 04/17/18 05:25 158/85 H 04/17/18 04:20 98.3 F 78 16 174/86 H 94 L 04/17/18 04:19 94 L Weight Weight 166.877 kg I&O: 04/16/18 04/17/18 04/18/18 06:59 06:59 06:59 Intake Total 707 1 Output Total 600 Balance 107 1 Result Diagrams: 04/15/18 19:40 04/17/18 10:14 <Alondra Mccray - Last Filed: 04/17/18 14:33> Phys Exam - Physical Examination Constitutional: NAD HEENT: PERRLA, moist MMs, oral pharynx no lesions Neck: no nodes, supple diffuse expiratory wheezing present Cardiovascular: RRR, no significant murmur Gastrointestinal: soft, non-tender, no distention, positive bowel sounds Musculoskeletal: pulses present, edema present 1+ pitting edema in BLE Psychiatric: normal affect, A&O x 3 <Ashley Andrews - Last Filed: 04/17/18 08:18> Dx/Plan (1) Hypokalemia Code(s): E87.6 - HYPOKALEMIA Status: Acute (2) Stable angina Code(s): I20.8 - OTHER FORMS OF ANGINA PECTORIS Status: Acute (3) CAD (coronary artery disease) Code(s): I25.10 - ATHSCL HEART DISEASE OF [place] CORONARY ARTERY W/O ANG PCTRS Status: Chronic Qualifiers: Coronary Disease-Associated Artery/Lesion type: [place] artery [place] vs. transplanted heart: [place] heart Associated angina: with stable angina Qualified Code(s): I25.118 - Atherosclerotic heart disease of [place] coronary artery with other forms of angina pectoris (4) CKD (chronic kidney disease) Code(s): N18.9 - CHRONIC KIDNEY DISEASE, UNSPECIFIED Status: Chronic Qualifiers: Chronic kidney disease stage: stage 2 (mild) Qualified Code(s): N18.2 - Chronic kidney disease, stage 2 (mild) (5) HLD (hyperlipidemia) Code(s): E78.5 - HYPERLIPIDEMIA, UNSPECIFIED Status: Chronic (6) HTN (hypertension) Code(s): I10 - ESSENTIAL (PRIMARY) HYPERTENSION Status: Chronic Qualifiers: Hypertension type: essential hypertension Qualified Code(s): I10 - Essential (primary) hypertension (7) Morbid (severe) obesity due to excess calories Code(s): E66.01 - MORBID (SEVERE) OBESITY DUE TO EXCESS CALORIES Status: Chronic (8) Tobacco abuse Code(s): Z72.0 - TOBACCO USE Status: Chronic - Plan Plan: 43 yo F with PMH CAD, Tobacco abuse, HLD, HTN presents with stable angina Stable Angina -second portion of stress today 04/17 -No events overnight -No EKG changes, nml trops. Pain resolved. History of CAD. -Restarted home meds (which she has been off for few months due to insurance issues) -Consult cardiology, Dr. Salas, appreciate recs. CAD Tobacco Abuse -encourage smoking cessation. -cont nicoderm patch HLD -cont high intensity statin. HTN -restart home meds -appears fairly well controlled at this time CKD Morbid obesity Hypokalemia -will recheck BMP this morning, and replete if hypokalemic <Ashley Andrews - Last Filed: 04/17/18 08:18> Attending Addendum - Attending Addendum Date/Time: 04/17/18 1427 I personally evaluated the patient and discussed the management with Dr. Lashay Andrews I agree with the History, Examination, Assessment and Plan documented above with any addition or exceptions noted below- Patient denies any complaints. No further chest pain. Afebrile VSS. A/P: 1) CAD- cath in 08/2017 showed 40-50% lesion in LAD; lexiscan stress test with area off reversible ischemia- plan to consult cardiology and possibly need for repeat cath. Continue ASA, statin. 2) HTN- well controlled; continue current meds. <Alondar Mccray - Last Filed: 04/17/18 14:33>
--- NOTE | 2018-04-17 08:45 | ADD-HP ---
ADDENDUM: Please see the note from Dr. Lokesh Bolaños for which I agree. The patient was seen, evaluated, and examined with the residents and discussed with them. HISTORY OF PRESENT ILLNESS: This is a 43-year-old obese white female with known coronary artery dise ase, a heart catheterization done by Dr. Rizo showed 40%-50% LAD blockage before and it was just do ne this past year and it sounds like she has even had a stent before, but comes in for a fairly class ic sounding angina type pain and so is being evaluated. Past medical history, home medications, past surgical history, social history, family history, review of systems all per the resident's history and physical. PHYSICAL EXAMINATION: GENERAL: Obese, alert and oriented x3. VITAL SIGNS: Stable. Blood pressure initially was elevated, but is now better. HEENT: Normal. NECK: No JVD. LUNGS: Chest. CARDIOVASCULAR: Regular rate and rhythm. EXTREMITIES: Show no edema. LABORATORY: Initial blood workup significant for no cardiac stress markers elevation. Sugar was nor mal. EKG looked fine as well. ASSESSMENT AND PLAN: Angina. I will get a stress test and likely get Cardiology involved, especiall y if it is positive. If it is negative, we might just get them to follow up as an outpatient. Keith nue same medicines for now including statin, aspirin, amlodipine, etcetera and follow up based on wha t stress test shows.
[2018-04-17] MEDS: Amlodipine 5 MG TAB PO SCH (09:17)
[2018-04-17] MEDS: Lisinopril/Hydrochlorothiazide 10 mg/12.5 mg Tablet PO SCH (09:17)
[2018-04-17] MEDS: Famotidine 20 MG TAB PO SCH ×2 (09:17→20:48)
[2018-04-17] MEDS: Aspirin 81 mg Enteric Coated Tablet PO SCH (09:17)
[2018-04-17 10:44] LABS: Anion Gap 12 mmol/L (10-20); BUN (Urea Nitrogen) 10 mg/dL (7.0-18.7); Calc. Creatinine Clearance 241 mL/min (70-130); Calcium 9.6 mg/dL (7.8-10.44); Carbon Dioxide 27 mmol/L (22-29); Chloride 105 mmol/L (98-107); Estimated GFR-MDRD 79; Glucose 104 mg/dL (70-105); Potassium 4.1 mmol/L (3.5-5.1); Sodium 140 mmol/L (136-145)
--- NOTE | 2018-04-17 12:10 | NM ---
MYOCARDIAL PERFUSION SCAN: The patient was given 33 mCi of technetium sestamibi for rest imaging and 27 mCi for stress imaging. INDICATINO: Chest pain. Patient was stressed according to Lexiscan protocol. FINDINGS: There is asymmetric activity in the anterior apical region of the left ventricle, consistent with mil d reversible ischemia. Wall motion appears normally maintained. Ejection fraction recorded at 61%. IMPRESSION: Evidence of reversible ischemia in the anterior apical region of the left ventricle. POS: [place]
[2018-04-17] MEDS ORDERED: Communication Order-Pharmacy FS SCH (13:15)
--- NOTE | 2018-04-17 15:44 | CON ---
DATE OF CONSULTATION: 04/17/2018 HISTORY OF PRESENT ILLNESS: The patient is a pleasant 43-year-old woman, who presents with substernal chest discomfort. The patient has a long history of chest discomfort. She was seen in the office in 08/2015 with chest pain. She was found to have an abnormal stress test. The patient subsequently underwent a cardiac catheterization. She was found on 08/24 to have normal left ventricular ejection fraction of 55%. The left anterior descending artery had a 40% mid stenosis. Left circumflex artery and the right coronary artery were free of significant disease. The patient was placed on medical therapy. The patient was highly advised to discontinue smoking. The patient was in her usual state of health when yesterday she developed recurrent chest discomfort. She states that the chest discomfort lasted for approximately 5 minutes. It was associated with dyspnea. The patient states the chest pain did not radiate. She has had no recent previous chest discomfort. The patient does state that she has not been taking any of her home medications except for aspirin. The patient denies having any present chest discomfort. PAST MEDICAL HISTORY: 1. Hypertension. 2. Coronary artery disease. PAST SURGICAL HISTORY: Hysterectomy, , tubal ligation. ALLERGIES: None. FAMILY HISTORY: No strong family history of heart disease. MEDICATIONS: Aspirin tablet daily. SOCIAL HISTORY: The patient continues to smoke a pack per day. REVIEW OF SYSTEMS: Ten-point system, otherwise, unremarkable. PHYSICAL EXAMINATION: GENERAL: This is an obese woman, in no acute distress. VITAL SIGNS: Blood pressure 143/74. NECK: No jugular venous distention. LUNGS: Clear to auscultation. HEART: Regular rate and rhythm, normal S1 and S2. ABDOMEN: Distended. EXTREMITIES: Show no edema. VASCULAR: Radial pulses are 2+. LABORATORY DATA: White blood cell count 8.6, hemoglobin 14.1, hematocrit 42.7, platelets 234. Sodium was 142, potassium 3.3, chloride 109, bicarbonate 26, BUN 15, creatinine 0.86, glucose 115. Troponin less than 0.01. EKG reveals normal sinus rhythm, normal ECG. IMPRESSION: 1. Chest pain. 2. History of coronary artery disease. 3. Hypertension. 4. Morbid obesity. 5. Tobacco abuse. This patient presents with recurrent chest discomfort. She had a cardiac catheterization, which revealed single-vessel coronary artery disease. The patient has been highly advised to discontinue smoking. The patient will undergo a stress test to evaluate if there is evidence of ischemia. The life- threatening complications for being noncompliant have been explained to the patient. We will follow this patient with you through her hospitalization. [place]IO[place]
[2018-04-17] MEDS: Acetaminophen 325 MG TAB PO PRN ×2 (16:36→21:40)
[2018-04-17] MEDS: Nicotine 21 MG PATCH TD SCH (20:48)
[2018-04-17] MEDS: Atorvastatin Calcium 40 MG TAB PO SCH (20:48)
[2018-04-17] MEDS: diphenhydrAMINE 25 MG CAP PO PRN (21:40)
[2018-04-18 04:44] LABS: Anion Gap 11 mmol/L (10-20); BUN (Urea Nitrogen) 12 mg/dL (7.0-18.7); Calc. Creatinine Clearance 241 mL/min (70-130); Calcium 9.4 mg/dL (7.8-10.44); Carbon Dioxide 29 mmol/L (22-29); Chloride 104 mmol/L (98-107); Estimated GFR-MDRD 79; Glucose 96 mg/dL (70-105); Potassium 3.7 mmol/L (3.5-5.1); Sodium 140 mmol/L (136-145)
[2018-04-18] MEDS: Aspirin 81 mg Enteric Coated Tablet PO SCH (05:25)
[2018-04-18] MEDS: Famotidine 20 MG TAB PO SCH ×2 (05:25→20:54)
[2018-04-18] MEDS: Amlodipine 5 MG TAB PO SCH (05:26)
--- NOTE | 2018-04-18 05:34 | PDOC.FM ---
- Subjective Subjective: Patient is feeling well this morning. Denies chest pain. Cardiac Cath is scheduled for today. - Objective Vital Signs & Weight: Vital Signs (12 hours) Temp Pulse Resp BP BP Pulse Ox 04/18/18 05:26 77 102/59 L 04/18/18 04:20 97.7 F 77 16 102/59 L 94 L 04/17/18 19:01 98.0 F 107 H 20 121/71 94 L Weight Weight 167.013 kg I&O: 04/16/18 04/17/18 04/18/18 06:59 06:59 06:59 Intake Total 707 2061 800 Output Total 600 Balance 107 2061 800 Result Diagrams: 04/15/18 19:40 04/18/18 04:13 <Ashley Andrews - Last Filed: 04/18/18 07:44> - Objective Vital Signs & Weight: Vital Signs (12 hours) Temp Pulse Resp BP BP Pulse Ox 04/18/18 15:28 98 F 90 20 139/92 H 95 04/18/18 11:09 98 F 80 20 123/63 93 L Weight Weight 167.013 kg I&O: 04/17/18 04/18/18 04/19/18 06:59 06:59 06:59 Intake Total 2060 1600 1350 Balance 2061 1600 1350 Result Diagrams: 04/15/18 19:40 04/18/18 04:13 <Alondra Mccray - Last Filed: 04/18/18 21:10> Phys Exam - Physical Examination Constitutional: NAD Neck: no nodes, supple Respiratory: no wheezing, clear to auscultation bilateral Cardiovascular: RRR, no significant murmur Gastrointestinal: soft, positive bowel sounds obese Musculoskeletal: pulses present, edema present 1+ pitting edema bilat Psychiatric: normal affect, A&O x 3 Skin: normal turgor, cap refill <2 seconds <Ashley Andrews - Last Filed: 04/18/18 07:44> Dx/Plan (1) Hypokalemia Code(s): E87.6 - HYPOKALEMIA Status: Acute (2) Stable angina Code(s): I20.8 - OTHER FORMS OF ANGINA PECTORIS Status: Acute (3) CAD (coronary artery disease) Code(s): I25.10 - ATHSCL HEART DISEASE OF [place] CORONARY ARTERY W/O ANG PCTRS Status: Chronic Qualifiers: Coronary Disease-Associated Artery/Lesion type: [place] artery [place] vs. transplanted heart: [place] heart Associated angina: with stable angina Qualified Code(s): I25.118 - Atherosclerotic heart disease of [place] coronary artery with other forms of angina pectoris (4) CKD (chronic kidney disease) Code(s): N18.9 - CHRONIC KIDNEY DISEASE, UNSPECIFIED Status: Chronic Qualifiers: Chronic kidney disease stage: stage 2 (mild) Qualified Code(s): N18.2 - Chronic kidney disease, stage 2 (mild) (5) HLD (hyperlipidemia) Code(s): E78.5 - HYPERLIPIDEMIA, UNSPECIFIED Status: Chronic (6) HTN (hypertension) Code(s): I10 - ESSENTIAL (PRIMARY) HYPERTENSION Status: Chronic Qualifiers: Hypertension type: essential hypertension Qualified Code(s): I10 - Essential (primary) hypertension (7) Morbid (severe) obesity due to excess calories Code(s): E66.01 - MORBID (SEVERE) OBESITY DUE TO EXCESS CALORIES Status: Chronic (8) Tobacco abuse Code(s): Z72.0 - TOBACCO USE Status: Chronic - Plan Plan: 43 yo F with PMH CAD, Tobacco abuse, HLD, HTN presents with stable angina Stable Angina -No EKG changes, nml trops. Pain resolved. History of CAD. -stress test showed reversible ischemia in the anterior apical region of her left ventricle -Restarted home meds (which she has been off for few months due to insurance issues) -Cardiology, Dr. Salas, consulted. Appreciate recs. -Radial heart cath today, patient NPO since midnight Tobacco Abuse -encourage smoking cessation. -cont nicoderm patch HLD, CAD -cont high intensity statin. HTN -restart home meds -appears fairly well controlled at this time CKD -EGFR 79 today Morbid obesity Hypokalemia, resolved -repeat K was 3.7 Dispo: Plan to discharge later today or tomorrow after cardiac catheterization, pending patient's clinical picture <Ashley Andrews - Last Filed: 04/18/18 07:44> Attending Addendum - Attending Addendum Date/Time: 04/18/18 6716 I personally evaluated the patient and discussed the management with Dr. Lashay Andrews I agree with the History, Examination, Assessment and Plan documented above with any addition or exceptions noted below- Patient without complaints. Denies any chest pain. Afebrile VSS. A/P: 1) CAD with abnormal stress- plan for stress test today. Await further recommendations from cardiology. 2) HTN- continue current meds. <Alondra Mccray - Last Filed: 04/18/18 21:10>
[2018-04-18] MEDS: Lisinopril/Hydrochlorothiazide 10 mg/12.5 mg Tablet PO SCH (08:09)
[2018-04-18] MEDS ORDERED: Iopamidol 370 76% 100 ML VIAL ONE (09:33)
[2018-04-18] MEDS ORDERED: Iopamidol 370 76% 50 ML VIAL FS ONE (09:33)
[2018-04-18] MEDS ORDERED: Lidocaine 1% (PF) 30 ML VIAL ONE (11:11)
[2018-04-18] MEDS ORDERED: Fentanyl 100 MCG/2 ML VIAL ONE (11:54)
[2018-04-18] MEDS ORDERED: Midazolam HCl 2 mg/2 ml Vial ONE (11:54)
[2018-04-18] MEDS ORDERED: Verapamil 5 MG/2 ML VIAL ONE (11:57)
[2018-04-18] MEDS ORDERED: Heparin 10,000 UNITS/1 ML VIAL ONE ×2 (11:57→12:47)
[2018-04-18] MEDS ORDERED: Nitroglycerin 100MG/250ML BOT 250 ML ONE (11:57)
[2018-04-18] MEDS ORDERED: Clopidogrel Bisulfate 300 MG TAB ONE (12:58)
[2018-04-18] MEDS ORDERED: traMADol HCl 50 MG TAB PO PRN (13:06)
[2018-04-18] MEDS ORDERED: Acetaminophen/Codeine 30-300mg Tablet PO PRN (13:06)
[2018-04-18] MEDS ORDERED: Sodium Chloride 0.9% 200 ML IV SCH (13:15)
[2018-04-18] MEDS: Sodium Chloride 0.9% 1,000 ML IV SCH (13:44)
[2018-04-18] MEDS: Atorvastatin Calcium 40 MG TAB PO SCH (20:55)
[2018-04-18] MEDS: Nicotine 21 MG PATCH TD SCH (20:57)
[2018-04-19] MEDS: Sodium Chloride 0.9% 1,000 ML IV SCH ×2 (01:12→09:47)
[2018-04-19] MEDS: diphenhydrAMINE 25 MG CAP PO PRN (04:29)
[2018-04-19 04:46] VITALS: BMI 58.8
--- NOTE | 2018-04-19 05:34 | PDOC.FM ---
Addendum entered and electronically signed by Ashley Andrews MD 04/19/18 08:48: Dr. Salas, consulted for cards. Will talk with him about when to discharge patient, and when to follow up with him. Original Note: - Subjective Subjective: Pt denies any chest pain, SOB this morning. Was asx during her tachycardia to 115 around 0630 this morning. States she probably just rolled over in bed. - Objective Vital Signs & Weight: Vital Signs (12 hours) Temp Pulse Resp BP Pulse Ox 04/19/18 04:00 98.7 F 75 20 133/63 95 04/18/18 20:00 98.1 F 95 18 133/74 94 L Weight Weight 165.561 kg I&O: 04/17/18 04/18/18 04/19/18 06:59 06:59 06:59 Intake Total 2060 1600 1350 Balance 2060 1600 1350 Result Diagrams: 04/15/18 19:40 04/18/18 04:13 <Ashley Andrews - Last Filed: 04/19/18 08:41> - Objective Vital Signs & Weight: Vital Signs (12 hours) Temp Pulse Resp BP Pulse Ox 04/19/18 07:13 98.3 F 81 22 H 128/81 95 04/19/18 04:00 98.7 F 75 20 133/63 95 Weight Weight 165.561 kg I&O: 04/18/18 04/19/18 04/20/18 06:59 06:59 06:59 Intake Total 1600 1750 Balance 1600 1750 Result Diagrams: 04/15/18 19:40 04/18/18 04:13 <Alondra Mccray - Last Filed: 04/19/18 11:27> Phys Exam - Physical Examination Constitutional: NAD Neck: no nodes, supple Respiratory: no wheezing, clear to auscultation bilateral Cardiovascular: RRR, no significant murmur Gastrointestinal: soft, non-tender, positive bowel sounds obese Musculoskeletal: pulses present Neurological: moves all 4 limbs Psychiatric: normal affect, A&O x 3 Skin: normal turgor <Ashley Andrews - Last Filed: 04/19/18 08:41> Dx/Plan (1) Hypokalemia Code(s): E87.6 - HYPOKALEMIA Status: Acute (2) Stable angina Code(s): I20.8 - OTHER FORMS OF ANGINA PECTORIS Status: Acute (3) CAD (coronary artery disease) Code(s): I25.10 - ATHSCL HEART DISEASE OF [place] CORONARY ARTERY W/O ANG PCTRS Status: Chronic Qualifiers: Coronary Disease-Associated Artery/Lesion type: [place] artery [place] vs. transplanted heart: [place] heart Associated angina: with stable angina Qualified Code(s): I25.118 - Atherosclerotic heart disease of [place] coronary artery with other forms of angina pectoris (4) CKD (chronic kidney disease) Code(s): N18.9 - CHRONIC KIDNEY DISEASE, UNSPECIFIED Status: Chronic Qualifiers: Chronic kidney disease stage: stage 2 (mild) Qualified Code(s): N18.2 - Chronic kidney disease, stage 2 (mild) (5) HLD (hyperlipidemia) Code(s): E78.5 - HYPERLIPIDEMIA, UNSPECIFIED Status: Chronic (6) HTN (hypertension) Code(s): I10 - ESSENTIAL (PRIMARY) HYPERTENSION Status: Chronic Qualifiers: Hypertension type: essential hypertension Qualified Code(s): I10 - Essential (primary) hypertension (7) Morbid (severe) obesity due to excess calories Code(s): E66.01 - MORBID (SEVERE) OBESITY DUE TO EXCESS CALORIES Status: Chronic (8) Tobacco abuse Code(s): Z72.0 - TOBACCO USE Status: Chronic - Plan Plan: 43 yo F with PMH CAD, Tobacco abuse, HLD, HTN presents with stable angina Stable Angina -No EKG changes, nml trops. Pain resolved. History of CAD. -stress test showed reversible ischemia in the anterior apical region of her left ventricle -Restarted home meds (which she has been off for few months due to insurance issues) -Cardiology, Dr. Salas, consulted. Appreciate recs. -Radial heart cath yesterday with Dr. Rizo 04/18/18, bare metal stent x1 placed in LAD; pinched diagonal in LAD -Cardiac rehab will see her today -Will touch base with Dr. Rizo, fi she can be discharged today and when to follow up outpatient with him. Appreciate his recommendations. Tachycardia -short episode last night on the monitor, around 0630, now 70-80s. Patient had no sx Tobacco Abuse -encourage smoking cessation. -cont nicoderm patch HLD, CAD -high intensity statin HTN -restart home meds -appears fairly well controlled at this time CKD -EGFR 79 today Morbid obesity Hypokalemia, resolved -repeat K was 3.7 Dispo: Most likely discharge today after cardiac rehab, pending clinical picture changes <Ashley Andrews - Last Filed: 04/19/18 08:41> Attending Addendum - Attending Addendum Date/Time: 04/19/18 1123 I personally evaluated the patient and discussed the management with Dr. Lashay Andrews I agree with the History, Examination, Assessment and Plan documented above with any addition or exceptions noted below- Patient without complaints. States that cardiology said she can home and follow-up as outpatient. Afebrile VSS. A/P : 1) CAD s/p stent placement- plan to d/c home today with clopidogrel, statin. 2 ) HTn- well controlled; continue home meds. <Alondra Mccray - Last Filed: 04/19/18 11:27>
[2018-04-19 07:44] VITALS: BP 128/81; TEMP 98.3
[2018-04-19] MEDS: Amlodipine 5 MG TAB PO SCH (08:44)
[2018-04-19] MEDS: Lisinopril/Hydrochlorothiazide 10 mg/12.5 mg Tablet PO SCH (08:44)
[2018-04-19] MEDS: Famotidine 20 MG TAB PO SCH (08:44)
[2018-04-19] MEDS: Aspirin 81 mg Enteric Coated Tablet PO SCH (08:45)
[2018-04-19] MEDS ORDERED: Clopidogrel Bisulfate 75 MG TAB PO SCH (10:00)
--- NOTE | 2018-04-20 02:39 | DIS-2 ---
DATE OF ADMISSION: 04/15/2018 DATE OF DISCHARGE: 04/19/2018 RESIDENT: Ashley Andrews M.D. ADMITTING ATTENDING: Tello Valenzuela M.D. DISCHARGE ATTENDING: Alondra Mccray M.D. CONSULTATIONS: Dr. Salas, Cardiology on 04/16/2018. PROCEDURES: 1. On 04/15/2018, chest x-ray, impression: No acute findings. 2. On 04/16/2018, stress test nuclear medicine, impression: Evidence of reversible ischemia in the anterior apical region of the left ventricle. 3. On 04/18/2018, catheter lab. Procedure summary: Normal LVEF. Patent RCA, mild proximal disease. Mid LAD, 60% stenosis and bifurcation with a medium sized diagonal. The patient not a good candidate for open heart surgery due to weight. PCI to LAD with a 2.5 x 20 mm bare metal stent. Medium sized diagonal pinch after stent but vessel had AMARILYS 3 flow and the patient remained asymptomatic so this was left alone. PRIMARY DIAGNOSIS: 1. CAD s/p LAD stent. 2. Stable angina. SECONDARY DIAGNOSES: 1. Tachycardia. 2. Tobacco abuse. 3. Hyperlipidemia. 4. Hypertension. 5. Chronic kidney disease. 6. Morbid obesity. 7. Hypokalemia. DISCHARGE MEDICATIONS: 1. Amlodipine 5 mg p.o. daily. 2. Aspirin 81 mg p.o. daily. 3. Atorvastatin 80 mg p.o. at bedtime. 4. Clopidogrel 75 mg p.o. daily. 5. Isosorbide mononitrate 30 mg p.o. daily. 6. Lisinopril/hydrochlorothiazide 10 mg/12.5 mg 1 tab p.o. daily. 7. Nitroglycerin 0.4 mg sublingual every 5 minutes p.r.n. for chest pain. DISCONTINUED MEDICATIONS: None. HISTORY OF PRESENT ILLNESS AND HOSPITAL COURSE: A 43-year-old female with past medical history of hypertension, hyperlipidemia, and obesity who presented to the ED with chief complaint of chest pain. 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 She stated the pain was 6/10 at its worst. She described the pain as a pressure and reported that she has never had pain like this before. The patient also reported shortness of breath and diaphoresis associated with the pain. She denied nausea, vomiting. The patient reports not taking her medication since December due to losing her insurance. The patient had a heart catheterization without stent placement in August of this year and was found to have 40%-50% stenosis of the LAD and normal LV function at that time. Plan at that time was to optimize medical therapy and add a statin. The patient was seen outpatient after stent by Dr. Vlad Salas. The patient had stable angina with no EKG changes and normal troponins. The patient had a 2-day stress test that showed reversible ischemia. Radial catheterization was done and a stent placed in the LAD (see procedure summary above). She was set up with cardiac rehabilitation. Plans to follow up outpatient with Dr. Salas. The patient was encouraged to quit smoking. DISPOSITION: Stable. DISCHARGE INSTRUCTIONS: 1. Location: Home. 2. Diet: Heart healthy. 3. Activity: As tolerated. 4. Followup: Follow up with cardiac rehab, Dr. Vlad Salas the next 4-6 weeks, [facility] within the next 7 days. [place]IO[place]
[2018-04-20] MEDS ORDERED: Clopidogrel Bisulfate 75 MG TAB PO SCH ×2 (09:00)
== END 2018-04-19 11:27 | disposition home or self-care (01) ==
LOC: ERS 18:49 → 2SW 22:22
PROVIDERS: ADMIT Family Medicine; ATTEND Family Medicine
PROC: 02703DZ Dilation of Coronary Artery, One Artery with Intraluminal Device, Percutaneous Approach (ICD-10-PCS; principal; 2018-04-18)
PROC: 4A023N7 Measurement of Cardiac Sampling and Pressure, Left Heart, Percutaneous Approach (ICD-10-PCS; 2018-04-18)
PROC: B2111ZZ Fluoroscopy of Multiple Coronary Arteries using Low Osmolar Contrast (ICD-10-PCS; 2018-04-18)
DX: I25.118 Atherosclerotic heart disease of native coronary artery with other forms of angina pectoris (principal); I12.9 Hypertensive chronic kidney disease with stage 1 through stage 4 chronic kidney disease, or unspecified chronic kidney disease; N18.3 Chronic kidney disease, stage 3 (moderate); E78.5 Hyperlipidemia, unspecified; F17.210 Nicotine dependence, cigarettes, uncomplicated; E78.00 Pure hypercholesterolemia, unspecified; E87.6 Hypokalemia; E66.01 Morbid (severe) obesity due to excess calories; Z68.43 Body mass index [BMI] 50.0-59.9, adult; Z79.82 Long term (current) use of aspirin; Z79.899 Other long term (current) drug therapy
CPT/HCPCS: 36415; 71045; 78452; 80048; 80053; 80061; 82550; 82553; 83690; 83735; 83880; 84484; 85025; 85347; 90471; 90686; 90732; 92928; 93005; 93010; 93017; 93458; 93798; 94640; 94760; 96361; 96374; 99152; 99153; 99406; A9500; C1769; C1876; C1887; G0008; G0009; G0378; J1644; J2001; J2250; J2270; J2785; J3010; J7620

== ENCOUNTER 2018-07-31 19:30 | Outpatient (CLI) | payer OTHER | END 2018-07-31 19:31 | disposition home or self-care (01) | LOC: SLEEPLAB 19:30 | PROVIDERS: ATTEND Internal Medicine Critical Care Medicine | DX: G47.33 Obstructive sleep apnea (adult) (pediatric) (principal); R53.83 Other fatigue; E66.9 Obesity, unspecified; R09.02 Hypoxemia | CPT/HCPCS: 95810 ==

== ENCOUNTER 2018-08-09 19:30 | Outpatient (CLI) | payer OTHER | END 2018-08-09 19:31 | disposition home or self-care (01) | LOC: SLEEPLAB 19:30 | PROVIDERS: ATTEND Internal Medicine Critical Care Medicine | DX: G47.33 Obstructive sleep apnea (adult) (pediatric) (principal); R53.83 Other fatigue; E66.9 Obesity, unspecified; Z68.43 Body mass index [BMI] 50.0-59.9, adult | CPT/HCPCS: 95811 ==

== ENCOUNTER 2018-09-14 21:16 | Emergency (ER) | payer OTHER ==
[2018-09-14] MEDS ORDERED: HYDROcodone/Acetaminophen 10/325 mg Tablet ONE (22:42)
--- NOTE | 2018-09-14 22:57 | RAD ---
THREE VIEWS LEFT ANKLE: 09/14/18 HISTORY: Pain. FINDINGS: No fracture. No cortical irregularity or periosteal reaction. Ankle mortise is intact. The joint spac e is preserved. IMPRESSION: Unremarkable left ankle three views. POS: [facility]
--- NOTE | 2018-09-14 23:00 | RAD ---
LEFT TIBIA AND FIBULA TWO VIEWS: 9 HISTORY: Pain. Bruising. FINDINGS: No fracture. No cortical irregularity or periosteal reaction. Possible soft tissue swelling involving the mid lateral aspect of the lower extremity. No radiopaque foreign body. IMPRESSION: Soft tissue swelling. No fracture. No erosive or destructive changes. POS: [facility]
[2018-09-14] MEDS ORDERED: Cephalexin 250 MG CAP ONE (23:10)
== END 2018-09-14 23:02 | disposition home or self-care (01) ==
LOC: ERS 21:16
DX: L03.116 Cellulitis of left lower limb (principal); I10 Essential (primary) hypertension; F17.210 Nicotine dependence, cigarettes, uncomplicated

== ENCOUNTER 2018-09-30 15:45 | Inpatient (IN) | payer OTHER ==
[2018-09-30] MEDS ORDERED: Lidocaine 1% w/Epinephrine 1:100K 20 ML VIAL ONE (16:33)
[2018-09-30 17:25] LABS: #Basophils 0.1 thou/uL (0.0-0.2); #Eosinphils 0.1 thou/uL (0.0-0.7); #Lymphocytes 2.1 thou/uL (1.20-3.40); #Monocytes 0.6 thou/uL (0.11-0.59); #Neutrophils 7.5 thou/uL (1.40-6.50); %Basophils 0.5 % (0.0-1.0); %Eosinophils 0.8 % (0.0-10.0); %Monocytes 5.9 % (0.0-10.0); %Neutrophils 72.8 % (42.0-75.0); Hemoglobin 13.5 g/dL (12.0-16.0); Mean Corpuscular HGB CONC 32.6 g/dL (32.0-36.0); Mean Corpuscular Hemoglobin 30.8 pg (27.0-31.0); Mean Corpuscular Volume 94.6 fL (78.0-98.0); Mean Platelet Volume 8.3 fL (7.4-10.4); Platelet Count 279 thou/uL (130-400); RBC Distribution Width 12.9 % (11.5-14.5); Red Blood Cell (RBC) Count 4.37 mill/uL (4.20-5.40); White Blood Cell (WBC) Count 10.2 thou/uL (4.8-10.8)
[2018-09-30] MEDS ORDERED: Acetaminophen 325 MG TAB PO PRN ×2 (17:30→20:51)
[2018-09-30] MEDS ORDERED: Ondansetron ODT 4 MG TAB SL PRN (17:30)
[2018-09-30] MEDS ORDERED: Ondansetron PF 4 MG/2 ML Vial IVP PRN (17:30)
[2018-09-30] MEDS ORDERED: Morphine 4 MG/ML VIAL ONE (17:31)
[2018-09-30 17:40] LABS: Anion Gap 13 mmol/L (10-20); BUN (Urea Nitrogen) 18 mg/dL (7.0-18.7); Calc. Creatinine Clearance 0 mL/min (70-130); Calcium 9.1 mg/dL (7.8-10.44); Carbon Dioxide 26 mmol/L (22-29); Chloride 102 mmol/L (98-107); Estimated GFR-MDRD 69; Glucose 113 mg/dL (70-105); Potassium 3.7 mmol/L (3.5-5.1); Sodium 137 mmol/L (136-145)
[2018-09-30] MEDS ORDERED: Adacel (T-DAP) 0.5 ML SYRINGE ONE (18:10)
[2018-09-30] MEDS ORDERED: Bacitracin Zinc 1 Packet ONE (18:11)
--- NOTE | 2018-09-30 19:37 | PDOC.FPRHP ---
- History of Present Illness Chief Complaint: Leg pain/infection History of Present Illness: Ms Adamson is a 43yo female with pmh of CAD s/p stent, HTN, tobacco abuse, prediabetes presenting for worsening left lower leg infection. She reports contusion to leg on September 08 followed by another contusion about a week later. At that time wound worsened and became increasingly red and painful. She presented to ED on 09/14. Had nml xray at that time. Discharged from ED with Keflex. She followed up in clinic shortly after and wound was showing improvement. Finished antibiotics Keflex 6 days ago. She did notice some improvement in wound on antibiotics but since stopping it has worsened. Denies fevers, chills. PCP: [facility] ED Course: Morphine 4mg, Vanc 1g - Allergies/Adverse Reactions Allergies Allergy/AdvReac Type Severity Reaction Status Date / Time No Known Allergies Allergy Verified 04/15/18 23:08 - Home Medications Medication Instructions Recorded Confirmed Type Aspirin [Ecotrin Low Strength] 81 mg PO DAILY #14 tab 04/19/18 09/30/18 Rx Atorvastatin Calcium 80 mg PO HS #14 tablet 04/19/18 09/30/18 Rx Clopidogrel Bisulfate [Plavix] 75 mg PO DAILY #14 tab 04/19/18 09/30/18 Rx Isosorbide Mononitrate [Imdur ER] 30 mg PO DAILY #14 tab 04/19/18 09/30/18 Rx Nitroglycerin [Nitrostat] 0.4 mg SL Q5MIN PRN #5 tab 04/19/18 09/30/18 Rx Amlodipine [Norvasc] 10 mg PO DAILY 09/30/18 09/30/18 History Furosemide 20 mg PO DAILY PRN 09/30/18 09/30/18 History Ipratropium [Atrovent HFA] 2 puff INH TID 09/30/18 09/30/18 History Lisinopril/Hydrochlorothiazide 1 tablet PO DAILY 09/30/18 09/30/18 History [Lisinopril-Hctz 20-25 mg Tab] - History PMHx: CAD s/p stent, ASHKAN, OA, HTN, tobacco abuse, prediabetes PSHx: Tubal ligation 2004, C/S 2004, Cholecystectomy 2015, Hysterectomy FHx: Mother- HTN, lung CA Father- HTN, HLD, COPD Social: Currently smoking 1ppd, has smoked 15 years. Denies alcohol or drug use. - Review of Systems General: denies: fever/chills, weight/appetite/sleep changes Eyes: denies: eye pain, vision changes ENT: denies: nasal congestion, rhinorrhea Respiratory: denies: cough, congestion, shortness of breath Cardiovascular: denies: chest pain, palpitation, edema Gastrointestinal: denies: nausea, vomiting, abdominal pain Skin: reports: lesions, other (redness around lesion) Musculoskeletal: reports: pain, tenderness, swelling Neurological: denies: numbness, weakness - Vital signs BP: 110/68 HR: 86 RR: 18 Tmax: 98.6 Pox: 100% on RA Wt: 159.66kg - Physical Exam Constitutional: NAD, awake, alert and oriented, well developed HEENT: normocephalic and atraumatic, PERRLA, conjunctiva clear, grossly normal hearing, MMM, oropharynx clear Neck: supple, trachea midline Heart: RRR, no murmurs/rubs/gallops, no edema, other (decreased dorsalis pedis pulses. Radial pulses intact) Lungs: CTAB, no respiratory distress, good air movement Abdomen: soft, non-tender, bowel sounds present Musculoskeletal: normal structure, normal tone Neurological: no focal deficit Skin: capillary refill <2 seconds, other (Left lower leg anterior wound, 5cm blister with small amt surrounding erythema. No purulent drainage.) Psychiatric: normal mood and affect, good judgment and insight, intact recent and remote memory FMR H&P: Results - Labs Result Diagrams: 09/30/18 17:12 09/30/18 17:12 Lab results: WBC 10.2 thou/uL (4.8-10.8) 09/30/18 17:12 Hgb 13.5 g/dL (12.0-16.0) 09/30/18 17:12 Hct 41.3 % (36.0-47.0) 09/30/18 17:12 MCV 94.6 fL (78.0-98.0) 09/30/18 17:12 Plt Count 279 thou/uL (130-400) 09/30/18 17:12 Neutrophils % 72.8 % (42.0-75.0) 09/30/18 17:12 Sodium 137 mmol/L (136-145) 09/30/18 17:12 Potassium 3.7 mmol/L (3.5-5.1) 09/30/18 17:12 Chloride 102 mmol/L (98-107) 09/30/18 17:12 Carbon Dioxide 26 mmol/L (22-29) 09/30/18 17:12 BUN 18 mg/dL (7.0-18.7) 09/30/18 17:12 Creatinine 0.90 mg/dL (0.6-1.1) 09/30/18 17:12 Glucose 113 mg/dL (70-105) H 09/30/18 17:12 Calcium 9.1 mg/dL (7.8-10.44) 09/30/18 17:12 FMR H&P: A/P - Problem List (1) Leg wound, left Current Visit: Yes Status: Acute Code(s): S81.802A - UNSPECIFIED OPEN WOUND , LEFT LOWER LEG, INITIAL ENCOUNTER (2) Stented coronary artery Current Visit: No Status: Chronic (3) CAD (coronary artery disease) Current Visit: No Status: Chronic Code(s): I25.10 - ATHSCL HEART DISEASE OF [place] CORONARY ARTERY W/O ANG PCTRS Qualifiers: Coronary Disease-Associated Artery/Lesion type: [place] artery [place] vs. transplanted heart: [place] heart Associated angina: with stable angina Qualified Code(s): I25.118 - Atherosclerotic heart disease of [place] coronary artery with other forms of angina pectoris (4) HLD (hyperlipidemia) Current Visit: No Status: Chronic Code(s): E78.5 - HYPERLIPIDEMIA, UNSPECIFIED (5) HTN (hypertension) Current Visit: No Status: Chronic Code(s): I10 - ESSENTIAL (PRIMARY) HYPERTENSION Qualifiers: Hypertension type: essential hypertension Qualified Code(s): I10 - Essential (primary) hypertension (6) Tobacco abuse Current Visit: No Status: Chronic Code(s): Z72.0 - TOBACCO USE - Plan Ms Adamson is a 43yo female with pmh of CAD s/p stent, HTN, tobacco abuse, prediabetes presenting for worsening left lower leg infection failed outpt treatment Left Leg Wound - Failed outpt PO Keflex - Will obtain ESR and Xray to r/o osteo - Continue Vanc given in ED, will add Zosyn - Tylenol, Ibuprofen and Morphine 2mg PRN for pain - Given Tdap in ED - Consulted Wound care - Will obtain wound culture - Admit to medical Prediabetes - Will obtain A1c to eval for wound healing. CAD s/p stent - Continue home meds HTN - Continue home meds ASHKAN - Has not been approved for CPAP yet through insurance Tobacco abuse - Nicotine patch PRN Code Status: DNR DVT ppx: Lovenox PCP: [facility] (Dr. Bolaños) FMR H&P: Upper Level - Pertinent history 43 y/o F presents for eval of LE wound w/ associated pain and redness s/p completing 1 week of Keflex approx.. 1 week ago. Denies any fever/chills. Reports blister formation and has been draining fluid. I&D performed in the ER w / reported blood clots removed. No culture was obtained and patient started Vancomycin. Edges of erythema were marked w/ marking pen. - Pertinent findings Vitals per Wire Straightener Note WBC 10.2 Neut 72.8 % Gluc 113 Derm: Approx. 5 x 5 cm wound L-distal anterior LE w/ surrounding erythema noted - Plan Date/Time: 09/30/181933 Jed Estevez MD have evaluated this patient and agree with findings/plan as outlined by sports internship resident. Pertinent changes/additions are listed here. 43 y/o F w/: 1. LE Wound w/ surrounding cellulitis w/ failed outpatient therapy - Will continue vanc as started in the ER and add Zosyn to cover for any gram negative and/or anaerobes given LE location of wound - Consult wound care for further management. Pt is a current smoker and likely w / some peripheral vascular disease 2/2 this likely contributing to delayed healing - No active DM per patient, will obtain A1c to screen for this as underlying DM would increase patients risk for significant infection - Will go ahead and obtain wound culture as this was not obtained in the ER - Will check ESR and get LE radiograph to eval for possible underlying osteo given location right above L-distal tibia and minimal soft tissue at this location 2.Other chronic medical problems per sports internship note
[2018-09-30 20:26] VITALS: BMI 58.7
[2018-09-30] MEDS ORDERED: Morphine 4 MG/ML VIAL SLOW IVP PRN (20:51)
[2018-09-30] MEDS ORDERED: Ibuprofen 600 MG TAB PO PRN (20:51)
[2018-09-30] MEDS ORDERED: Nitroglycerin 0.4 MG TAB (25 Tab Bottle) SL PRN (20:51)
[2018-09-30] MEDS ORDERED: Atorvastatin Calcium 40 MG TAB PO SCH (21:00)
[2018-09-30] MEDS ORDERED: Nicotine 21 MG PATCH TD SCH (21:00)
[2018-09-30] MEDS: Vancomycin HCl 1.75 GM in Sodium Chloride 0.9% 500 ML IVPB SCH (21:53)
[2018-10-01] MEDS: Piperacillin/Tazobactam 3.375 GM in Sodium Chloride 0.9% 100 ML IVPB SCH ×4 (00:01→18:28)
[2018-10-01 05:41] LABS: #Basophils 0.1 thou/uL (0.0-0.2); #Eosinphils 0.1 thou/uL (0.0-0.7); #Lymphocytes 1.8 thou/uL (1.20-3.40); #Monocytes 0.5 thou/uL (0.11-0.59); #Neutrophils 5.2 thou/uL (1.40-6.50); %Basophils 0.9 % (0.0-1.0); %Eosinophils 0.9 % (0.0-10.0); %Lymphocytes 23.8 % (21.0-51.0); %Monocytes 6.9 % (0.0-10.0); %Neutrophils 67.6 % (42.0-75.0); Hemoglobin 13.2 g/dL (12.0-16.0); Mean Corpuscular HGB CONC 33.5 g/dL (32.0-36.0); Mean Corpuscular Hemoglobin 31.7 pg (27.0-31.0); Mean Corpuscular Volume 94.6 fL (78.0-98.0); Mean Platelet Volume 8.6 fL (7.4-10.4); Platelet Count 250 thou/uL (130-400); RBC Distribution Width 12.8 % (11.5-14.5); Red Blood Cell (RBC) Count 4.16 mill/uL (4.20-5.40); White Blood Cell (WBC) Count 7.6 thou/uL (4.8-10.8)
[2018-10-01 06:02] LABS: Anion Gap 8 mmol/L (10-20); BUN (Urea Nitrogen) 17 mg/dL (7.0-18.7); Calc. Creatinine Clearance 244 mL/min (70-130); Calcium 8.8 mg/dL (7.8-10.44); Carbon Dioxide 30 mmol/L (22-29); Chloride 103 mmol/L (98-107); Estimated GFR-MDRD 78; Glucose 91 mg/dL (70-105); Potassium 3.9 mmol/L (3.5-5.1); Sodium 137 mmol/L (136-145)
--- NOTE | 2018-10-01 06:07 | PDOC.FM ---
- Subjective Subjective: Patient has been taking frequent smoking breaks this morning. Complaining that her room is too small. Otherwise, no complaints. - Objective MAR Reviewed: Yes Vital Signs & Weight: Vital Signs (12 hours) Temp Pulse Resp BP BP Pulse Ox 10/01/18 04:11 97.8 F 76 16 111/53 L 111/53 L 95 09/30/18 20:00 98.4 F 75 20 115/56 L 98 Weight Weight 171.14 kg Result Diagrams: 10/01/18 04:51 10/01/18 04:51 Phys Exam - Physical Examination Constitutional: NAD Neck: full ROM no respiratory distress full ROM in all extremities Neurological: non-focal, moves all 4 limbs Deviation from normal: ~5x5cm area of erythema and warmth w/ central eschar on anterior right dominguez Dx/Plan (1) Leg wound, left Code(s): S81.802A - UNSPECIFIED OPEN WOUND, LEFT LOWER LEG, INITIAL ENCOUNTER Status: Acute (2) CAD (coronary artery disease) Code(s): I25.10 - ATHSCL HEART DISEASE OF [place] CORONARY ARTERY W/O ANG PCTRS Status: Chronic Qualifiers: Coronary Disease-Associated Artery/Lesion type: [place] artery [place] vs. transplanted heart: [place] heart Associated angina: with stable angina Qualified Code(s): I25.118 - Atherosclerotic heart disease of [place] coronary artery with other forms of angina pectoris (3) CKD (chronic kidney disease) Code(s): N18.9 - CHRONIC KIDNEY DISEASE, UNSPECIFIED Status: Chronic Qualifiers: Chronic kidney disease stage: stage 2 (mild) Qualified Code(s): N18.2 - Chronic kidney disease, stage 2 (mild) (4) HLD (hyperlipidemia) Code(s): E78.5 - HYPERLIPIDEMIA, UNSPECIFIED Status: Chronic (5) HTN (hypertension) Code(s): I10 - ESSENTIAL (PRIMARY) HYPERTENSION Status: Chronic Qualifiers: Hypertension type: essential hypertension Qualified Code(s): I10 - Essential (primary) hypertension (6) Morbid (severe) obesity due to excess calories Code(s): E66.01 - MORBID (SEVERE) OBESITY DUE TO EXCESS CALORIES Status: Chronic (7) Stented coronary artery Status: Chronic (8) Tobacco abuse Code(s): Z72.0 - TOBACCO USE Status: Chronic (9) Cellulitis Code(s): L03.90 - CELLULITIS, UNSPECIFIED Status: Acute Qualifiers: Site of cellulitis: extremity Site of cellulitis of extremity: lower extremity Laterality: left Qualified Code(s): L03.116 - Cellulitis of left lower limb - Plan Plan: Ms Adamson is a 43yo female with a pmh of CAD s/p stent placement, HTN, tobacco abuse, & prediabetes presenting for a worsening left lower leg infection that failed outpatient antibiotic treatment. Left Leg cellulitis - Failed outpt PO Keflex. Afebrile and WBC WNLs but ~5x5 cm wound with central eschar noted on exam w/ surrounding erythema & warmth. - ESR elevated at 53. X-ray official read pending but no signs of osteo on personal review. - Will continue Vanc & Zosyn. Wound culture pending. - Will continue Tylenol & Ibuprofen and de-escalate Morphine as patient has been ambulatory all AM. - Given Tdap in ED. - Wound care on board. Prediabetes - A1c pending. CAD s/p stent - Continue home meds. HTN - Continue home meds. ASHKAN - Has not been approved for CPAP yet through insurance. - Will order while inpatient via RT. Tobacco abuse - Nicotine patch PRN Code Status: DNR DVT ppx: Lovenox GI PPx: none Diet: CC, HH, low Na Abx: Vanc and zosyn (09/30) IVFs: SL PCP: [facility] (Dr. Bolaños) Addendum - Attending - Attending Attestation Date/Time: 10/01/18 [id number] I personally evaluated the patient and discussed the management with Dr. Hernández. H&P of Dr. Black/Marcela was reviewed and repeated by me. I agree with the History, Examination, Assessment and Plan documented above with any addition or exceptions noted below. L leg wound with eschar and infected bullae with surrounding cellulitis- on vanc and zosyn. Wound care was able to probe wound and concerned for tracking. Surgery consult entered today. Prediabetes- a1c at goal. tobacco abuse- cessation counseling.
[2018-10-01] MEDS ORDERED: Acetaminophen 500 MG TAB PO PRN (06:08)
[2018-10-01] MEDS ORDERED: Ibuprofen 600 MG TAB PO PRN (08:33)
[2018-10-01] MEDS: Atorvastatin Calcium 40 MG TAB PO SCH (08:43)
[2018-10-01] MEDS: Amlodipine 10 MG TAB PO SCH (08:44)
[2018-10-01] MEDS: Lisinopril/Hydrochlorothiazide 20/25 mg Tablet PO SCH (08:44)
[2018-10-01] MEDS: Clopidogrel Bisulfate 75 MG TAB PO SCH (08:45)
[2018-10-01] MEDS: Aspirin 81 mg Enteric Coated Tablet PO SCH (08:45)
[2018-10-01] MEDS: Enoxaparin Sodium 40 MG/0.4 ML SYRINGE SC SCH (08:45)
--- NOTE | 2018-10-01 09:33 | RAD ---
IMAGING LEFT TIBIA AND FIBULA: DATE: 09/30/2018. COMPARISON: 09/14/2018. HISTORY: Wound, evaluate for osteomyelitis. FINDINGS: Anterior soft tissue swelling noted. No radiopaque foreign body or subcutaneous gas. No displaced f racture or dislocation. No convincing evidence for osteomyelitis. If there is high clinical concern , MRI advised. IMPRESSION: No subcutaneous gas or osseous destructive change. Please see above discussion. POS: [place]
[2018-10-01] MEDS: Vancomycin HCl 1.75 GM in Sodium Chloride 0.9% 500 ML IVPB SCH ×3 (10:08→23:56)
[2018-10-01] MEDS: traMADol HCl 50 MG TAB PO PRN ×3 (10:08→22:49)
[2018-10-01] MEDS: Ipratropium Oral Inhaler (200 INHALATIONS) INH SCH ×3 (10:44→19:53)
[2018-10-01] MEDS ORDERED: Morphine 4 MG/ML VIAL SLOW IVP PRN (12:00)
[2018-10-02] MEDS: Piperacillin/Tazobactam 3.375 GM in Sodium Chloride 0.9% 100 ML IVPB SCH ×5 (00:13→21:21)
[2018-10-02] MEDS ORDERED: Fentanyl 100 MCG/2 ML VIAL ONE ×2 (06:59→08:46)
[2018-10-02] MEDS ORDERED: Bupivacaine/Epinephrine 0.25% 30 ML VIAL ONE (07:09)
--- NOTE | 2018-10-02 07:39 | PDOC.FM ---
- Subjective Subjective: Pt reports that her pain is controlled at this time. She denies fever, chills, SOB, nausea, or vomiting. She tolerated PO intake post procedure. - Objective MAR Reviewed: Yes Vital Signs & Weight: Vital Signs (12 hours) Temp Pulse Resp BP BP Pulse Ox 10/02/18 03:50 98 F 72 20 118/57 L 93 L 10/01/18 23:50 98.4 F 72 24 H 117/67 96 10/01/18 19:53 85 16 97 10/01/18 19:50 98.6 F 98 28 H 135/95 H 97 Weight Weight 171.14 kg I&O: 10/01/18 10/02/18 10/03/18 06:59 06:59 06:59 Intake Total 240 2170 Balance 240 2170 Result Diagrams: 10/02/18 13:02 10/02/18 13:02 Phys Exam - Physical Examination Constitutional: NAD HEENT: moist MMs Neck: no JVD Respiratory: no wheezing, clear to auscultation bilateral Cardiovascular: RRR, no significant murmur Gastrointestinal: soft, no distention, positive bowel sounds Musculoskeletal: no edema LLE is wrapped s/p I&D, pt is neurovascularly intact Neurological: moves all 4 limbs Psychiatric: normal affect, A&O x 3 Skin: cap refill <2 seconds Dx/Plan (1) Cellulitis Code(s): L03.90 - CELLULITIS, UNSPECIFIED Status: Acute Qualifiers: Site of cellulitis: extremity Site of cellulitis of extremity: lower extremity Laterality: left Qualified Code(s): L03.116 - Cellulitis of left lower limb (2) Leg wound, left Code(s): S81.802A - UNSPECIFIED OPEN WOUND, LEFT LOWER LEG, INITIAL ENCOUNTER Status: Acute (3) CAD (coronary artery disease) Code(s): I25.10 - ATHSCL HEART DISEASE OF [place] CORONARY ARTERY W/O ANG PCTRS Status: Chronic Qualifiers: Coronary Disease-Associated Artery/Lesion type: [place] artery [place] vs. transplanted heart: [place] heart Associated angina: with stable angina Qualified Code(s): I25.118 - Atherosclerotic heart disease of [place] coronary artery with other forms of angina pectoris (4) HLD (hyperlipidemia) Code(s): E78.5 - HYPERLIPIDEMIA, UNSPECIFIED Status: Chronic (5) Morbid (severe) obesity due to excess calories Code(s): E66.01 - MORBID (SEVERE) OBESITY DUE TO EXCESS CALORIES Status: Chronic (6) Tobacco abuse Code(s): Z72.0 - TOBACCO USE Status: Chronic - Plan Plan: This is a 43 yo female with a pmh of CAD s/p sent, HTN, tobacco abuse, prediabetes Left leg cellulitis -Failed outpt keflex regimen. Remains afebile with normal WBCs -No signs of osteo per xray -Continue vanc and zosyn -Tylenol and ibuprofen for pain -Dr. Sen took this patient for I&D, likely transition to PO abx tomorrow. Prediabetes, ruled out -A1c of 5.0 CAD s/p stent -continue home meds HTN -Continue home meds ASHKAN -Pending home CPAP approval by insurance -RT to administer CPAP while here Tobacco abuse -Nicotine patch PRN Addendum - Attending - Attending Attestation Date/Time: 10/02/18 4948 I personally evaluated the patient and discussed the management with Dr. Bolaños I agree with the History, Examination, Assessment and Plan documented above with any addition or exceptions noted below. Patient post operative I&D attempted leave floor to smoke she felt quesy and returned to her room. Patient admonished and advised need to discontinue smoking patient endorses understanding and agreeable was on chantix and nicotine patch previously.
[2018-10-02] MEDS: Ipratropium Oral Inhaler (200 INHALATIONS) INH SCH ×3 (07:54→19:52)
[2018-10-02] MEDS ORDERED: Promethazine HCl 25 MG/ML VIAL SLOW IVP PRN (08:06)
[2018-10-02] MEDS ORDERED: Ondansetron HCl/PF 4 MG/2 ML Vial IVP PRN (08:06)
[2018-10-02] MEDS ORDERED: Promethazine HCl 25 MG/ML VIAL IM PRN (08:06)
--- NOTE | 2018-10-02 08:49 | OP ---
DATE OF PROCEDURE: 10/02/2018 PREOPERATIVE DIAGNOSIS: Necrotic infected left leg wound. POSTOPERATIVE DIAGNOSIS: Necrotic infected left leg wound. PROCEDURE PERFORMED: Incision, drainage, and debridement, left leg wound, 10 square centimeters. ANESTHESIA: General. ESTIMATED BLOOD LOSS: Minimal. COMPLICATIONS: None. SPECIMEN: None. DESCRIPTION OF PROCEDURE: The patient was taken to the operating room and laid supine on the operating room table. After general anesthetic was obtained, left lower extremity was prepped and draped in a sterile fashion. The infected eschar was ellipsed out down to good granulation tissue. All loculations were broken up. 10 square centimeters of debridement was performed. The wound was irrigated, and wet-to-dry dressing was placed. The patient was en route to Recovery in stable condition. All instrument counts, needle counts, and lap counts were correct. Job ID: [id number]
[2018-10-02] MEDS ORDERED: HYDROcodone/Acetaminophen 7.5/325 mg Tablet PO PRN (09:36)
[2018-10-02] MEDS ORDERED: Morphine 2 MG/ML SYRINGE SLOW IVP PRN (09:36)
[2018-10-02] MEDS ORDERED: Morphine 4 MG/ML VIAL SLOW IVP PRN (09:36)
[2018-10-02] MEDS: Enoxaparin Sodium 40 MG/0.4 ML SYRINGE SC SCH (11:22)
[2018-10-02] MEDS: Atorvastatin Calcium 40 MG TAB PO SCH (11:23)
[2018-10-02] MEDS: Lisinopril/Hydrochlorothiazide 20/25 mg Tablet PO SCH (11:24)
[2018-10-02] MEDS: Amlodipine 10 MG TAB PO SCH (11:24)
[2018-10-02] MEDS: Aspirin 81 mg Enteric Coated Tablet PO SCH (11:25)
[2018-10-02] MEDS: Clopidogrel Bisulfate 75 MG TAB PO SCH (11:25)
[2018-10-02] MEDS: Vancomycin HCl 1.75 GM in Sodium Chloride 0.9% 500 ML IVPB SCH ×2 (11:26→22:28)
[2018-10-02] MEDS ORDERED: Sodium Chloride 0.9% 10 ML ONE (11:36)
[2018-10-02] MEDS: HYDROcodone/Acetaminophen 7.5/325 mg Tablet PO PRN ×2 (13:02→21:06)
[2018-10-02 13:12] LABS: #Basophils 0.1 thou/uL (0.0-0.2); #Eosinphils 0.1 thou/uL (0.0-0.7); #Lymphocytes 1.6 thou/uL (1.20-3.40); #Monocytes 0.8 thou/uL (0.11-0.59); %Basophils 0.5 % (0.0-1.0); %Eosinophils 1.2 % (0.0-10.0); %Lymphocytes 14.2 % (21.0-51.0); %Monocytes 6.6 % (0.0-10.0); %Neutrophils 77.6 % (42.0-75.0); Hemoglobin 12.6 g/dL (12.0-16.0); Mean Corpuscular HGB CONC 32.2 g/dL (32.0-36.0); Mean Corpuscular Hemoglobin 31.4 pg (27.0-31.0); Mean Corpuscular Volume 97.5 fL (78.0-98.0); Mean Platelet Volume 8.4 fL (7.4-10.4); Platelet Count 251 thou/uL (130-400); Red Blood Cell (RBC) Count 4.02 mill/uL (4.20-5.40); White Blood Cell (WBC) Count 11.5 thou/uL (4.8-10.8)
[2018-10-02 13:30] LABS: Anion Gap 12 mmol/L (10-20); BUN (Urea Nitrogen) 15 mg/dL (7.0-18.7); Calc. Creatinine Clearance 222 mL/min (70-130); Calcium 8.4 mg/dL (7.8-10.44); Carbon Dioxide 25 mmol/L (22-29); Chloride 103 mmol/L (98-107); Estimated GFR-MDRD 70; Glucose 87 mg/dL (70-105); Potassium 3.7 mmol/L (3.5-5.1); Sodium 136 mmol/L (136-145); Vancomycin, Trough 11.6 ug/mL
[2018-10-02] MEDS ORDERED: Ketorolac Tromethamine 30 MG/ML VIAL ONE (16:51)
[2018-10-02] MEDS ORDERED: Lidocaine 1% PF 5 ML VIAL ONE (16:51)
[2018-10-02] MEDS ORDERED: Ondansetron PF 4 MG/2 ML Vial ONE (16:51)
[2018-10-02] MEDS ORDERED: Succinylcholine Chloride 20 MG/ML 10 ml SYRINGE FS ONE (16:51)
[2018-10-02] MEDS ORDERED: PROPOFOL 200 MG/20 ML VIAL ONE (16:51)
[2018-10-03] MEDS: Piperacillin/Tazobactam 3.375 GM in Sodium Chloride 0.9% 100 ML IVPB SCH ×2 (02:47→09:35)
[2018-10-03] MEDS: HYDROcodone/Acetaminophen 7.5/325 mg Tablet PO PRN ×4 (02:50→21:50)
--- NOTE | 2018-10-03 06:13 | PDOC.FM ---
- Subjective Subjective: Pt reports she did well overnight. She denies chest pain, dyspnea, nausea, vomiting, or diarrhea. She does state her pain is improved on the current meds and she has been able to walk around. - Objective MAR Reviewed: Yes Vital Signs & Weight: Vital Signs (12 hours) Temp Pulse Resp BP BP BP Pulse Ox 10/03/18 04:55 97.7 F 72 20 95/52 L 93 L 10/03/18 00:30 98.4 F 68 20 140/84 97 10/02/18 21:15 98.6 F 76 20 103/58 L 93 L 10/02/18 19:52 82 18 98 Weight Admit Weight 171.14 kg Weight 171.14 kg I&O: 10/01/18 10/02/18 10/03/18 06:59 06:59 06:59 Intake Total 240 2170 Balance 240 2170 Result Diagrams: 10/03/18 07:43 10/03/18 07:43 Phys Exam - Physical Examination Constitutional: NAD HEENT: moist MMs Neck: no JVD, full ROM Respiratory: no wheezing, no rales, no rhonchi, clear to auscultation bilateral Cardiovascular: RRR, no significant murmur, no rub Gastrointestinal: soft, non-tender, no distention, positive bowel sounds Musculoskeletal: edema present (mild nonpitting on right leg) left leg is rea wrapped, neurovascularly intact Neurological: normal sensation, moves all 4 limbs Psychiatric: normal affect, A&O x 3 Skin: cap refill <2 seconds Dx/Plan (1) Cellulitis Code(s): L03.90 - CELLULITIS, UNSPECIFIED Status: Acute Qualifiers: Site of cellulitis: extremity Site of cellulitis of extremity: lower extremity Laterality: left Qualified Code(s): L03.116 - Cellulitis of left lower limb (2) Leg wound, left Code(s): S81.802A - UNSPECIFIED OPEN WOUND, LEFT LOWER LEG, INITIAL ENCOUNTER Status: Acute (3) CAD (coronary artery disease) Code(s): I25.10 - ATHSCL HEART DISEASE OF [place] CORONARY ARTERY W/O ANG PCTRS Status: Chronic Qualifiers: Coronary Disease-Associated Artery/Lesion type: [place] artery [place] vs. transplanted heart: [place] heart Associated angina: with stable angina Qualified Code(s): I25.118 - Atherosclerotic heart disease of [place] coronary artery with other forms of angina pectoris (4) HLD (hyperlipidemia) Code(s): E78.5 - HYPERLIPIDEMIA, UNSPECIFIED Status: Chronic (5) Morbid (severe) obesity due to excess calories Code(s): E66.01 - MORBID (SEVERE) OBESITY DUE TO EXCESS CALORIES Status: Chronic (6) Tobacco abuse Code(s): Z72.0 - TOBACCO USE Status: Chronic - Plan Plan: This is a 43 yo female with a pmh of CAD s/p sent, HTN, tobacco abuse, prediabetes Left leg cellulitis -Failed outpt keflex regimen. Remains afebile with normal WBCs -No signs of osteo per xray -Continue vanc and zosyn -Tylenol and ibuprofen for pain -POD [address] Sen, likely transition to PO doxycycline today -Pending wound cultures Prediabetes, ruled out -A1c of 5.0 CAD s/p stent -continue home meds HTN -Continue home meds ASHKAN -Pending home CPAP approval by insurance -RT to administer CPAP while here Tobacco abuse -Nicotine patch PRN Addendum - Attending - Attending Attestation Date/Time: 10/03/18 3630 I personally evaluated the patient and discussed the management with Dr. Bolaños I agree with the History, Examination, Assessment and Plan documented above with any addition or exceptions noted below. POD # 2 patient doing well afebrile pain controlled ambulating has wound vacuum ok to transition po antibiotic and arrange outpt wound vacuum per Dr Turner approval .
[2018-10-03] MEDS: Ipratropium Oral Inhaler (200 INHALATIONS) INH SCH ×3 (07:25→18:10)
[2018-10-03 07:57] LABS: #Basophils 0.1 thou/uL (0.0-0.2); #Eosinphils 0.1 thou/uL (0.0-0.7); #Lymphocytes 1.3 thou/uL (1.20-3.40); #Monocytes 0.4 thou/uL (0.11-0.59); #Neutrophils 3.2 thou/uL (1.40-6.50); %Basophils 1.3 % (0.0-1.0); %Eosinophils 1.7 % (0.0-10.0); %Lymphocytes 25.6 % (21.0-51.0); %Monocytes 7.3 % (0.0-10.0); %Neutrophils 64.2 % (42.0-75.0); Hemoglobin 11.2 g/dL (12.0-16.0); Mean Corpuscular HGB CONC 32.1 g/dL (32.0-36.0); Mean Corpuscular Hemoglobin 30.8 pg (27.0-31.0); Mean Platelet Volume 8.1 fL (7.4-10.4); Platelet Count 210 thou/uL (130-400); RBC Distribution Width 12.8 % (11.5-14.5); Red Blood Cell (RBC) Count 3.63 mill/uL (4.20-5.40)
[2018-10-03 08:17] LABS: Anion Gap 8 mmol/L (10-20); BUN (Urea Nitrogen) 12 mg/dL (7.0-18.7); Calc. Creatinine Clearance 241 mL/min (70-130); Calcium 8.2 mg/dL (7.8-10.44); Carbon Dioxide 30 mmol/L (22-29); Chloride 105 mmol/L (98-107); Estimated GFR-MDRD 76; Glucose 94 mg/dL (70-105); Potassium 4.1 mmol/L (3.5-5.1); Sodium 139 mmol/L (136-145)
[2018-10-03] MEDS: Enoxaparin Sodium 40 MG/0.4 ML SYRINGE SC SCH (09:35)
[2018-10-03] MEDS: Atorvastatin Calcium 40 MG TAB PO SCH (09:38)
[2018-10-03] MEDS: Clopidogrel Bisulfate 75 MG TAB PO SCH (09:38)
[2018-10-03] MEDS: Amlodipine 10 MG TAB PO SCH (09:39)
[2018-10-03] MEDS: Lisinopril/Hydrochlorothiazide 20/25 mg Tablet PO SCH (09:39)
[2018-10-03] MEDS: Aspirin 81 mg Enteric Coated Tablet PO SCH (10:23)
[2018-10-03] MEDS ORDERED: Doxycycline 100 MG CAP PO SCH (11:30)
[2018-10-03] MEDS: Ibuprofen 800 MG TAB PO SCH ×2 (13:47→21:50)
--- NOTE | 2018-10-03 14:08 | PQF ---
REMBERTO UNDERWOOD BRYAN DAVID MD [id number] [address] [place] [address] [phone] CLINICAL DOCUMENTATION IMPROVEMENT CLARIFICATION FORM: ICD-10 Updated PLEASE DO AN ADDENDUM TO THE PROGRESS NOTE WITH ANY DOCUMENTATION UPDATES OR ADDITIONS AND CARRY THROUGH TO DC SUMMARY. THANK YOU. DATE: ATTN: DR. JUWAN SMITH Please exercise your independent, professional judgment in responding to the clarification form. Clinical indicators are provided on the bottom of this form for your review. Please check appropriate box(s): [ ] Excisional Debridement: [ ] Excised [ ] Cut away [ ] Other: Depth / layer: (deepest layer of debridement): [ ] Skin [ ] SubQ Tissue [ ] Fascia [ ] Muscle [ ] Tendon [ ] Bone Appearance of wound: (e.g., down to fresh bleeding tissue, etc.)___ Margins: (please specify): / x x Instruments used: [ ] Scissors [ ] Scalpel [ ] Curette [ ] Soft tissue clipper [ ] Other: [ ] Non-excisional Debridement: (Removal by flushing, brushing, chemical, or washing) Depth / layer: (deepest layer of debridement): [ ] Skin [ ] Subcutaneous [ ] Fascia [ ] Muscle [ ] Tendon [ ] Bone [ ] Other procedure diagnosis [ ] Unable to determine For continuity of documentation, please document condition throughout progress notes and discharge summary. Thank You. CLINICAL INDICATORS - SIGNS / SYMPTOMS / LABS PREOPERATIVE DIAGNOSIS: NECROTIC INFECTED LEFT LEG WOUND PROCEDURE: 10/02 - INCISION, DRAINAGE, & DEBRIDEMENT, L LEG WOUND (THE INFECTED ESCHAR WAS ELLIPSED OUT DOWN TO GOOD GRANULATION TISSUE. ALL LOCULATIONS WERE BROKEN UP. 10 SQUARE CENTIMETERS OF DEBRIDEMENT WAS PERFORMED) RISK: L LE NECROTIC INFECTED LEG WOUND MORBID OBESITY TREATMENT: INCISION, DRAINAGE & DEBRIDEMENT (10/02) IV ANTIBIOTICS (VANCOMYCIN, ZOSYN) WOUND CARE THANK YOU! Huyen (This form is maintained as a part of the permanent medical record) 2014 [employer] All Rights Reserved Huyen Wagoner RN, BSN [email or web address] Office: [phone] [facility]
[2018-10-03] MEDS: Doxycycline 100 MG CAP PO SCH (21:50)
[2018-10-04] MEDS: HYDROcodone/Acetaminophen 7.5/325 mg Tablet PO PRN ×2 (04:16→10:35)
[2018-10-04] MEDS: Ibuprofen 800 MG TAB PO SCH ×2 (05:47→15:01)
--- NOTE | 2018-10-04 06:08 | PDOC.FM ---
- Subjective Subjective: Pt reports she is doing well. Pain is controlled she does complain of constipation. She denies SOB, chest pain, or abdominal pain. - Objective MAR Reviewed: Yes Vital Signs & Weight: Vital Signs (12 hours) Temp Pulse Resp BP Pulse Ox 10/04/18 04:17 98.4 F 72 16 122/76 98 10/04/18 00:49 97.9 F 66 16 115/62 97 10/03/18 19:54 86 16 113/70 97 Weight Admit Weight 171.14 kg Weight 171.14 kg I&O: 10/02/18 10/03/18 10/04/18 06:59 06:59 06:59 Intake Total 2169 1989 480 Balance 2169 1989 480 Result Diagrams: 10/04/18 05:57 10/04/18 05:57 Phys Exam - Physical Examination Constitutional: NAD (Pt outside on bench smoking) HEENT: moist MMs Neck: supple, full ROM Respiratory: no wheezing, no rales, clear to auscultation bilateral Cardiovascular: RRR, no significant murmur Gastrointestinal: soft, non-tender, no distention, positive bowel sounds Musculoskeletal: pulses present trace edema bilaterally, BLE neurovascularly intact Neurological: moves all 4 limbs Psychiatric: normal affect, A&O x 3 Skin: cap refill <2 seconds Dx/Plan (1) Cellulitis Code(s): L03.90 - CELLULITIS, UNSPECIFIED Status: Acute Qualifiers: Site of cellulitis: extremity Site of cellulitis of extremity: lower extremity Laterality: left Qualified Code(s): L03.116 - Cellulitis of left lower limb (2) Leg wound, left Code(s): S81.802A - UNSPECIFIED OPEN WOUND, LEFT LOWER LEG, INITIAL ENCOUNTER Status: Acute (3) CAD (coronary artery disease) Code(s): I25.10 - ATHSCL HEART DISEASE OF [place] CORONARY ARTERY W/O ANG PCTRS Status: Chronic Qualifiers: Coronary Disease-Associated Artery/Lesion type: [place] artery [place] vs. transplanted heart: nondalton heart Associated angina: with stable angina Qualified Code(s): I25.118 - Atherosclerotic heart disease of [place] coronary artery with other forms of angina pectoris (4) HLD (hyperlipidemia) Code(s): E78.5 - HYPERLIPIDEMIA, UNSPECIFIED Status: Chronic (5) Morbid (severe) obesity due to excess calories Code(s): E66.01 - MORBID (SEVERE) OBESITY DUE TO EXCESS CALORIES Status: Chronic (6) Tobacco abuse Code(s): Z72.0 - TOBACCO USE Status: Chronic - Plan Plan: This is a 43 yo female with a pmh of CAD s/p sent, HTN, tobacco abuse, prediabetes Left leg cellulitis -Failed outpt keflex regimen. Remains afebile with normal WBCs -No signs of osteo per xray -Continue vanc and zosyn -Tylenol and ibuprofen for pain -POD [address] Sen, continue PO doxycycline -Wound cultures negative -Pt has wound care visit set up, pending final insurance approval for wound vac Prediabetes, ruled out -A1c of 5.0 CAD s/p stent -continue home meds HTN -Continue home meds ASHKAN -Pending home CPAP approval by insurance -RT to administer CPAP while here Tobacco abuse -Nicotine patch PRN Constipation likely 2/2 opioids vs decreased activity -Scheduled miralax and senekot Addendum - Attending - Attending Attestation Date/Time: 10/04/18 1387 I personally evaluated the patient and discussed the management with Dr. Bolaños I agree with the History, Examination, Assessment and Plan documented above with any addition or exceptions noted below. POD#2 doing well Home with arrangement for wound vacuum and CPAP continue to encourage smoking cessation. Pain controlled afebrile VSS ambulatory offering no complaints.
[2018-10-04 06:18] LABS: #Eosinphils 0.1 thou/uL (0.0-0.7); #Monocytes 0.5 thou/uL (0.11-0.59); #Neutrophils 3.9 thou/uL (1.40-6.50); %Basophils 0.5 % (0.0-1.0); %Eosinophils 1.6 % (0.0-10.0); %Lymphocytes 30.5 % (21.0-51.0); %Monocytes 7.1 % (0.0-10.0); %Neutrophils 60.4 % (42.0-75.0); Hemoglobin 11.8 g/dL (12.0-16.0); Mean Corpuscular HGB CONC 32.3 g/dL (32.0-36.0); Mean Corpuscular Hemoglobin 31.3 pg (27.0-31.0); Mean Platelet Volume 8.5 fL (7.4-10.4); Platelet Count 224 thou/uL (130-400); RBC Distribution Width 12.7 % (11.5-14.5); Red Blood Cell (RBC) Count 3.77 mill/uL (4.20-5.40); White Blood Cell (WBC) Count 6.4 thou/uL (4.8-10.8)
[2018-10-04 06:33] LABS: Anion Gap 8 mmol/L (10-20); BUN (Urea Nitrogen) 16 mg/dL (7.0-18.7); Calc. Creatinine Clearance 244 mL/min (70-130); Calcium 8.6 mg/dL (7.8-10.44); Carbon Dioxide 31 mmol/L (22-29); Chloride 105 mmol/L (98-107); Estimated GFR-MDRD 78; Glucose 90 mg/dL (70-105); Potassium 3.7 mmol/L (3.5-5.1); Sodium 140 mmol/L (136-145)
[2018-10-04] MEDS: Ipratropium Oral Inhaler (200 INHALATIONS) INH SCH ×2 (08:03→13:56)
[2018-10-04 08:09] VITALS: TEMP 98.5
[2018-10-04] MEDS: Doxycycline 100 MG CAP PO SCH (08:27)
[2018-10-04] MEDS: Clopidogrel Bisulfate 75 MG TAB PO SCH (08:28)
[2018-10-04] MEDS: Lisinopril/Hydrochlorothiazide 20/25 mg Tablet PO SCH (08:28)
[2018-10-04] MEDS: Amlodipine 10 MG TAB PO SCH (08:29)
[2018-10-04] MEDS: Atorvastatin Calcium 40 MG TAB PO SCH (08:29)
[2018-10-04] MEDS: Enoxaparin Sodium 40 MG/0.4 ML SYRINGE SC SCH (08:30)
[2018-10-04] MEDS ORDERED: Polyethylene Glycol 3350 17 GM Packet PO SCH (09:00)
[2018-10-04] MEDS ORDERED: Senokot 8.6 MG TAB PO SCH (09:00)
[2018-10-04] MEDS: Aspirin 81 mg Enteric Coated Tablet PO SCH (09:26)
--- NOTE | 2018-10-04 10:23 | PDOC.GSPN ---
Surgery Progress Note: Subj - Subjective Patient reports: no new complaints Surgery Progress Note: Obj - Vital signs Vital signs: Vital Signs - Most Recent Temp Pulse Resp BP Pulse Ox 98.5 F 72 20 121/69 97 10/04/18 08:00 10/04/18 08:29 10/04/18 08:00 10/04/18 08:00 10/04/18 08:00 - Physical Exam General: no distress Wound: wound vac (in place) Surgery Progress Note: Results - Labs Result Diagrams: 10/04/18 05:57 10/04/18 05:57 Lab results: Laboratory Results - last 24 hr 10/04/18 10/04/18 05:57 05:57 WBC 6.4 RBC 3.77 L Hgb 11.8 L Hct 36.6 MCV 97.0 MCH 31.3 H MCHC 32.3 RDW 12.7 Plt Count 224 MPV 8.5 Neutrophils % 60.4 Lymphocytes % 30.5 Monocytes % 7.1 Eosinophils % 1.6 Basophils % 0.5 Neutrophils # 3.9 Lymphocytes # 2.0 Monocytes # 0.5 Eosinophils # 0.1 Basophils # 0.0 Sodium 140 Potassium 3.7 Chloride 105 Carbon Dioxide 31 H Anion Gap 8 L BUN 16 Creatinine 0.81 Estimated GFR (MDRD) 78 Glucose 90 Calcium 8.6 Surgery Progress Note: A/P - Problem (1) Cellulitis Current Visit: Yes Code(s): L03.90 - CELLULITIS, UNSPECIFIED Status: Acute Qualifiers: Site of cellulitis: extremity Site of cellulitis of extremity: lower extremity Laterality: left Qualified Code(s): L03.116 - Cellulitis of left lower limb - Plan Plan: Home vac likely approved today -DC after vac approved -she will call be to see when dressing change done in outpatient wound care
[2018-10-04 11:49] VITALS: BP 121/63
--- NOTE | 2018-10-05 12:42 | DIS ---
DATE OF ADMISSION: 10/01/2018 DATE OF DISCHARGE: 10/04/2018 RESIDENT: Lokesh Bolaños DO. CONSULTS: Dr. Oni Sen, General Surgery. PROCEDURES: 1. X-ray of tib-fib showing no signs of subcutaneous gas or osseous destructive change. 2. Incision and drainage and debridement of left leg wound, 10 square cm due to necrotic infected leg wound. PRIMARY DIAGNOSIS: Necrotic chronic wound with failed outpatient Keflex. SECONDARY DIAGNOSES: Hypertension; coronary artery disease, status post stents; obstructive sleep apnea; osteoarthritis; tobacco abuse. DISCHARGE MEDICATIONS: 1. Doxycycline 100 mg p.o. b.i.d. for 5 days. 2. Tramadol 50 mg p.o. q.6 hours p.r.n. pain. 3. Tylenol 1000 mg p.o. q.6 hours. 4. Amlodipine 10 mg p.o. daily. 5. Aspirin 81 mg p.o. daily. 6. Atorvastatin 80 mg p.o. at bedtime. 7. Plavix 75 mg p.o. daily. 8. Furosemide 20 mg p.o. daily. 9. Ipratropium two puffs t.i.d. p.r.n. 10. Isosorbide dinitrate 30 mg p.o. daily. 11. Lisinopril and hydrochlorothiazide 20 and 25 mg respectively p.o. daily. 12. Nitroglycerin 0.4 mg sublingual q.5 minutes p.r.n. chest pain. 13. MiraLAX 1 packet p.o. daily. 14. Senokot two tablets p.o. daily. DISCHARGE MEDICATIONS: None. BRIEF HISTORY OF PRESENT ILLNESS/HOSPITAL COURSE: This is a 43-year-old female with past medical history as above, who presented with a leg wound that had not improved with Keflex outpatient. Said it became worse, increasing red, and painful. She failed 6 days of outpatient Keflex. When she returns, she denied fever or chills. The patient was admitted. Surgery was consulted and underwent I and D and debridement as mentioned above. The patient tolerated the procedure well and was placed on a wound VAC. The patient was kept an extra day due to difficulty obtaining wound VAC per insurance. DISPOSITION: Stable. DISCHARGE INSTRUCTIONS: 1. Location: Home. 2. Diet: Heart healthy. 3. Activity: As tolerated. 4. Follow up with wound care on 10/06/2018. 5. Follow up with Dr. Bolaños, [facility] in 1 to 2 weeks. 6. Follow up with Dr. Sen in 1 to 2 weeks. Job ID: [id number]
== END 2018-10-04 15:14 | disposition home or self-care (01) | DRG 571 ==
LOC: ERS 15:45 → 2SW 19:46 → OBSVTOIN 10-01 08:16 → 3SE 10-01 14:13
PROVIDERS: ADMIT Family Medicine; ATTEND Family Medicine
PROC: 0JBP0ZZ Excision of Left Lower Leg Subcutaneous Tissue and Fascia, Open Approach (ICD-10-PCS; principal; 2018-10-02)
DX: L03.116 Cellulitis of left lower limb (principal); Z68.43 Body mass index [BMI] 50.0-59.9, adult; S81.802A Unspecified open wound, left lower leg, initial encounter; I25.10 Atherosclerotic heart disease of native coronary artery without angina pectoris; E78.00 Pure hypercholesterolemia, unspecified; I10 Essential (primary) hypertension; Z72.0 Tobacco use; G47.33 Obstructive sleep apnea (adult) (pediatric); Z66 Do not resuscitate; E66.01 Morbid (severe) obesity due to excess calories; R73.03 Prediabetes
CPT/HCPCS: 10140; 36415; 80048; 80202; 83036; 85025; 85652; 87070; 87205; 90471; 90715; 94664; 96365; 96375; J1650; J1885; J2001; J2270; J2405; J2543; J2704; J3010; J3370; J7050

== ENCOUNTER 2018-10-06 13:42 | Outpatient (CLI) | payer OTHER ==
[2018-10-06] MEDS ORDERED: Sodium Chloride 0.9% 15 ML NEB ONE (18:00)
== END 2018-10-06 13:43 | disposition home or self-care (01) ==
LOC: WCC 13:42
PROVIDERS: ATTEND Family Medicine
DX: S81.802D Unspecified open wound, left lower leg, subsequent encounter (principal); I25.10 Atherosclerotic heart disease of native coronary artery without angina pectoris; Z95.1 Presence of aortocoronary bypass graft; E78.5 Hyperlipidemia, unspecified; I10 Essential (primary) hypertension
CPT/HCPCS: A4218

== ENCOUNTER 2018-10-08 10:04 | Emergency (ER) | payer OTHER | END 2018-10-08 10:48 | disposition home or self-care (01) | LOC: ERS 10:04 | DX: T81.89XA Other complications of procedures, not elsewhere classified, initial encounter (principal); I10 Essential (primary) hypertension; F17.210 Nicotine dependence, cigarettes, uncomplicated; Z79.891 Long term (current) use of opiate analgesic; Z79.82 Long term (current) use of aspirin; Z79.899 Other long term (current) drug therapy | CPT/HCPCS: 99283 ==

== ENCOUNTER 2018-10-10 15:52 | Outpatient (CLI) | payer OTHER ==
[2018-10-10] MEDS ORDERED: Sodium Chloride 0.9% 15 ML NEB ONE (18:00)
== END 2018-10-10 15:53 | disposition home or self-care (01) ==
LOC: WCC 15:52
PROVIDERS: ATTEND Family Medicine
DX: I87.392 Chronic venous hypertension (idiopathic) with other complications of left lower extremity (principal)
CPT/HCPCS: 97605; A4218

== ENCOUNTER 2018-10-13 14:29 | Outpatient (CLI) | payer OTHER ==
[~2018-10-13 14:29] MED LIST: Sodium Chloride 0.9% 15 ML NEB ONE
== END 2018-10-13 14:30 | disposition home or self-care (01) ==
LOC: WCC 14:29
PROVIDERS: ATTEND Family Medicine
DX: S81.802D Unspecified open wound, left lower leg, subsequent encounter (principal); L08.9 Local infection of the skin and subcutaneous tissue, unspecified
CPT/HCPCS: 97605; A4218

== ENCOUNTER 2018-10-17 13:21 | Outpatient (CLI) | payer OTHER ==
[2018-10-17] MEDS ORDERED: Sodium Chloride 0.9% 15 ML NEB ONE (18:00)
== END 2018-10-17 13:22 | disposition home or self-care (01) ==
LOC: WCC 13:21
PROVIDERS: ATTEND Family Medicine
DX: I87.302 Chronic venous hypertension (idiopathic) without complications of left lower extremity (principal)
CPT/HCPCS: 97605; A4218

== ENCOUNTER 2018-10-20 09:19 | Outpatient (CLI) | payer OTHER ==
[2018-10-20] MEDS ORDERED: Sodium Chloride 0.9% 15 ML NEB ONE (21:33)
== END 2018-10-20 09:20 | disposition home or self-care (01) ==
LOC: WCC 09:19
PROVIDERS: ATTEND Family Medicine
DX: I87.302 Chronic venous hypertension (idiopathic) without complications of left lower extremity (principal)
CPT/HCPCS: 97605; A4218

== ENCOUNTER 2018-10-23 12:56 | Outpatient (CLI) | payer OTHER ==
[2018-10-23] MEDS ORDERED: Sodium Chloride 0.9% 15 ML NEB ONE (21:50)
[2018-10-23] MEDS ORDERED: Lidocaine 2% 11 ML SYR ONE (21:50)
== END 2018-10-23 12:57 | disposition home or self-care (01) ==
LOC: WCC 12:56
PROVIDERS: ATTEND Family Medicine
DX: I87.302 Chronic venous hypertension (idiopathic) without complications of left lower extremity (principal)
CPT/HCPCS: 97605; A4218

== ENCOUNTER 2018-10-26 09:37 | Outpatient (CLI) | payer OTHER ==
--- NOTE | 2018-10-26 12:22 | HP ---
HISTORY OF PRESENT ILLNESS: Ms. Ashley Adamson is a very pleasant 43-year-old, who presents to the Wound Center for evaluation of a wound of the left lateral lower leg. The patient states that she fell through and off a step. She states that she hit her left lateral lower leg again one week later. She states that she developed a "blood blister" over her left lateral lower leg for which she was seen in the emergency department and placed on a course of p.o. antibiotics. One and half weeks later after she noted the onset of fever, she was seen again in the emergency department. At this time, she states the wound was opened and she was admitted to [facility] for further evaluation and treatment. During the patient's hospital stay, Ms. Adamson underwent incision, drainage, and debridement of her left lateral lower leg for treatment of an infected wound. The patient underwent the preceding procedure on 10/02/[address] Oni Sen. Negative pressure therapy was initiated subsequent to surgery. Upon discharge from [facility], the patient was referred to the Wound Center for assistance with dressing changes of the wound VAC. PAST MEDICAL HISTORY: 1. Hypertension. 2. Migraine headaches. 3. Coronary artery disease. 4. Chronic kidney disease. 5. Obstructive sleep apnea. 6. Osteoarthritis. PAST SURGICAL HISTORY: 1. Low-transverse section. 2. Bilateral tubal ligation. 3. Laparoscopic cholecystectomy. 4. Laparoscopic hysterectomy with bilateral salpingectomy and lysis of adhesions. 5. Incision, drainage, and debridement of infected left leg wound on 10/02/[address] Aleks Sen. MEDICATIONS: 1. Tylenol p.r.n. 2. Motrin p.r.n. 3. Aspirin 81 mg. 4. Plavix. 5. Imdur. 6. Norvasc. 7. Lasix. 8. Lisinopril/hydrochlorothiazide. 9. Atrovent. 10. Zyrtec. 11. Flonase. 12. Nitroglycerin p.r.n. ALLERGIES: NO KNOWN DIAGNOSED ALLERGIES. SOCIAL HISTORY: Social history is significant for tobacco use of up to 2 packs of cigarettes per day for over 20 years. The patient denies any history of alcohol use. FAMILY HISTORY: Family history is negative for diabetes mellitus or coronary artery disease. PHYSICAL EXAMINATION: VITAL SIGNS: Temperature 97.8, pulse 81, respirations 19, blood pressure 139/62. GENERAL: A 43-year-old female, sitting on table in examination room, in no acute distress. HEENT: Normocephalic, atraumatic. NECK: No nuchal rigidity. CHEST: Clear to auscultation. CV: Regular rate and rhythm. ABDOMEN: Soft. EXTREMITIES: A wound to the left lateral lower leg is present, which measures approximately 6.2 x 5.3 cm. Granulation tissue is present within the wound margins. Necrotic and nonviable tissue present within the wound margins was debrided with an excisional full-thickness debridement with the use of scissors. No purulent drainage is associated with the wound. No erythema of the skin surrounding the wound is present. No maceration of the skin of the periwound is noted. [id number] edema of the left foot and lower leg is present on exam today. NEUROLOGIC: Grossly nonfocal. ASSESSMENT AND PLAN: 1. Wound of left lateral lower leg as described above. The healing of the ulceration appears to be compromised by chronic venous hypertension. Negative pressure therapy will be continued with dressing changes of the wound VAC here in the Wound Center. No antibiotics will be prescribed today based upon the appearance of the wound. The patient will be seen by Dr. Sen in 1 week. I will see Ms. Adamson again in 2 weeks. The patient understands and is in agreement with the preceding treatment plan. 2. Hypertension. 3. Migraine headaches. 4. Coronary artery disease. 5. Chronic kidney disease. 6. Obstructive sleep apnea. 7. Osteoarthritis. Job ID: [id number]
[2018-10-26] MEDS ORDERED: Lidocaine 2% 11 ML SYR ONE (17:20)
[2018-10-26] MEDS ORDERED: Sodium Chloride 0.9% 15 ML NEB ONE (17:20)
== END 2018-10-26 09:38 | disposition home or self-care (01) ==
LOC: WCC 09:37
PROVIDERS: ATTEND Family Medicine
DX: T81.89XD Other complications of procedures, not elsewhere classified, subsequent encounter (principal); I12.9 Hypertensive chronic kidney disease with stage 1 through stage 4 chronic kidney disease, or unspecified chronic kidney disease; N18.9 Chronic kidney disease, unspecified; G43.909 Migraine, unspecified, not intractable, without status migrainosus; G47.33 Obstructive sleep apnea (adult) (pediatric); M19.90 Unspecified osteoarthritis, unspecified site; I25.10 Atherosclerotic heart disease of native coronary artery without angina pectoris
CPT/HCPCS: 11042; 11045; 99203; A4218; G0463

== ENCOUNTER 2018-10-31 11:00 | Outpatient (CLI) | payer OTHER ==
[2018-10-31] MEDS ORDERED: Sodium Chloride 0.9% 15 ML NEB ONE (14:51)
== END 2018-10-31 11:01 | disposition home or self-care (01) ==
LOC: WCC 11:00
PROVIDERS: ATTEND Family Medicine
DX: I87.322 Chronic venous hypertension (idiopathic) with inflammation of left lower extremity (principal)
CPT/HCPCS: 97605; A4218

== ENCOUNTER 2018-11-06 14:16 | Outpatient (CLI) | payer OTHER ==
--- NOTE | 2018-11-06 10:34 | PRG ---
DATE OF SERVICE: 11/06/2018 HISTORY: Ms. Ashley Adamson is a very pleasant 43-year-old, who presents to the Wound Center for evaluation of a wound of the left lateral lower leg. The patient stated previously that she fell through and off a step. She stated that she hit her left lateral lower leg again 1 week later. She stated that she developed a "blood blister" over her left lateral lower leg, for which she was seen in the emergency department and placed on a course of p.o. antibiotics. One and half weeks later, after she noted the onset of fever, she was seen again in the emergency department. At this time, she stated the wound was opened and she was admitted to [facility] for further evaluation and treatment. During the patient's hospital stay, Ms. Adamson underwent incision, drainage, and debridement of her left lateral lower leg for treatment of an infected wound. The patient underwent the preceding procedure on 10/02/[address] Oni Sen. Negative pressure therapy was initiated subsequent to surgery. Upon discharge from [facility], the patient was referred to the Wound Center for assistance with dressing changes of the wound VAC. PHYSICAL EXAMINATION: VITAL SIGNS: Temperature 98.0, pulse 98, blood pressure 133/61. EXTREMITIES: A wound of the left lateral lower leg is present, which measures approximately 5.6 x 6.3 cm. The dimensions of the wound at the time of the patient's visit on 10/26/2018 were approximately 6.2 x 5.3 cm. Granulation tissue is present within the wound margins. Necrotic and nonviable tissue present within the wound margins was debrided with an excisional full-thickness debridement with the use of scissors. No purulent drainage is associated with the wound. No cellulitis of the left lower leg is appreciated. No maceration of the skin of the periwound is noted. No significant edema of the left foot or lower leg is present on exam today. ASSESSMENT AND PLAN: 1. Wound of left lateral lower leg as described above. Negative pressure therapy will be continued with dressing changes of the wound VAC here in the Wound Center. The patient will be seen by Dr. Sen in 1 week. I will see Ms. Adamson again in 2 weeks. 2. Hypertension. 3. Migraine headaches. 4. Coronary artery disease. 5. Chronic kidney disease. 6. Obstructive sleep apnea. 7. Osteoarthritis. Job ID: [id number]
[2018-11-06] MEDS ORDERED: Sodium Chloride 0.9% 15 ML NEB ONE (19:10)
[2018-11-06] MEDS ORDERED: Lidocaine 2% 11 ML SYR ONE (19:10)
== END 2018-11-06 14:17 | disposition home or self-care (01) ==
LOC: WCC 14:16
PROVIDERS: ATTEND Family Medicine
DX: T81.89XD Other complications of procedures, not elsewhere classified, subsequent encounter (principal); G43.909 Migraine, unspecified, not intractable, without status migrainosus; I25.10 Atherosclerotic heart disease of native coronary artery without angina pectoris; I12.9 Hypertensive chronic kidney disease with stage 1 through stage 4 chronic kidney disease, or unspecified chronic kidney disease; N18.9 Chronic kidney disease, unspecified; G47.33 Obstructive sleep apnea (adult) (pediatric); M19.90 Unspecified osteoarthritis, unspecified site
CPT/HCPCS: 11042; 11045; A4218

== ENCOUNTER 2018-11-09 09:20 | Outpatient (CLI) | payer OTHER ==
--- NOTE | 2018-11-09 09:52 | MMO ---
Bilateral MAMMO Bilat Diag DDI+LOTUS. CLINICAL HISTORY: Patient is 43 years old and is seen for diagnostic exam. The patient has no family history of breast cancer. The patient has no personal history of cancer. VIEWS: The views performed were: bilateral craniocaudal with tomosynthesis; bilateral mediolateral oblique with tomosynthesis; and bilateral mediolateral. FILMS COMPARED: The present examination has been compared to prior imaging studies performed at [facility] on 06/29/2017, 07/29/2017 and 11/09/2018. MAMMOGRAM FINDINGS: There are scattered fibroglandular densities. Finding 1: There are multiple stable intramammary lymph nodes seen in the right breast. Finding 2: There are stable benign appearing calcifications seen in both breasts. There are no suspicious masses, suspicious calcifications, or new areas of architectural distortion. IMPRESSION: THERE IS NO MAMMOGRAPHIC EVIDENCE OF MALIGNANCY. A ROUTINE FOLLOW-UP MAMMOGRAM IN 1 YEAR IS RECOMMENDED. THE RESULTS OF THIS EXAM WERE SENT TO THE PATIENT. ACR BI-RADS Category 2 - Benign finding MAMMOGRAPHY NOTE: 1. A negative mammogram report should not delay a biopsy if a dominant of clinically suspicious mass is present. 2. Approximately 10% to 15% of breast cancers are not detected by mammography. 3. Adenosis and dense breasts may obscure an underlying neoplasm.
== END 2018-11-09 09:21 | disposition home or self-care (01) ==
LOC: BICMAMMO 09:20
PROVIDERS: ATTEND Family Medicine
DX: R92.8 Other abnormal and inconclusive findings on diagnostic imaging of breast (principal)
CPT/HCPCS: 77066; G0279

== ENCOUNTER 2018-11-09 14:37 | Outpatient (CLI) | payer OTHER ==
[2018-11-09] MEDS ORDERED: Sodium Chloride 0.9% 15 ML NEB ONE (16:18)
== END 2018-11-09 14:38 | disposition home or self-care (01) ==
LOC: WCC 14:37
PROVIDERS: ATTEND Family Medicine
DX: I87.392 Chronic venous hypertension (idiopathic) with other complications of left lower extremity (principal); S81.802D Unspecified open wound, left lower leg, subsequent encounter
CPT/HCPCS: 97605; A4218

== ENCOUNTER 2018-11-14 09:44 | Outpatient (CLI) | payer OTHER ==
[2018-11-14] MEDS ORDERED: Sodium Chloride 0.9% 15 ML NEB ONE (18:00)
== END 2018-11-14 09:45 | disposition home or self-care (01) ==
LOC: WCC 09:44
PROVIDERS: ATTEND Family Medicine
DX: I87.392 Chronic venous hypertension (idiopathic) with other complications of left lower extremity (principal); S81.802D Unspecified open wound, left lower leg, subsequent encounter
CPT/HCPCS: 97605; A4218

== ENCOUNTER 2018-11-17 13:38 | Outpatient (CLI) | payer OTHER ==
[2018-11-17] MEDS ORDERED: Sodium Chloride 0.9% 15 ML NEB ONE (15:00)
== END 2018-11-17 13:39 | disposition home or self-care (01) ==
LOC: WCC 13:38
PROVIDERS: ATTEND Family Medicine
DX: I87.392 Chronic venous hypertension (idiopathic) with other complications of left lower extremity (principal); S81.802D Unspecified open wound, left lower leg, subsequent encounter
CPT/HCPCS: 97605; A4218

== ENCOUNTER 2018-11-20 08:36 | Outpatient (CLI) | payer OTHER ==
--- NOTE | 2018-11-20 17:26 | PRG ---
DATE OF SERVICE: 11/20/2018 HISTORY: Ms. Ashley Adamson is a very pleasant 43-year-old, who presents to the Wound Center for evaluation of a wound of the left lateral lower leg. The patient previously stated that she fell through and off a step. She stated that she hit her left lateral lower leg again 1 week later. She stated that she developed a "blood blister" over her left lateral lower leg, for which she was seen in the emergency department and placed on a course of p.o. antibiotics and one and half weeks later, after she noted the onset of fever, she was seen again in the emergency department. At this time, she stated the wound was opened and she was admitted to [facility] for further evaluation and treatment. During the patient's hospital stay, Ms. Adamson underwent incision, drainage, and debridement of her left lateral lower leg for treatment of an infected wound. The patient underwent the preceding procedure on 10/02/[address] Oni Sen. Negative pressure therapy was initiated subsequent to surgery. Upon discharge from [facility], the patient was referred to the Wound Center for assistance with dressing changes of the wound VAC. PHYSICAL EXAMINATION: VITAL SIGNS: Temperature 97.9, pulse 79, respirations 17, blood pressure 123/66. EXTREMITIES: Wound of the left lateral lower leg is present, which measures approximately 6.4 x 5.5 cm. The dimensions of the wound at the time of the patient's visit on 11/06/2018 were approximately 5.6 x 6.3 cm. Granulation tissue is present within the wound margins. Necrotic and nonviable tissue present within the wound margin was debrided with an excisional full-thickness debridement with the use of scissors. No purulent drainage is associated with the wound. No erythema of the skin surrounding the wound is present. No maceration of the skin of the periwound is noted. Edema of the left foot and lower leg is present on today's exam. ASSESSMENT AND PLAN: 1. Wound of left lateral lower leg as described above. Negative pressure therapy will be discontinued. Medihoney foam, Webril, and the 3M Coban 2 Layer Compression System will be applied to the ulceration today. The patient will be seen by Dr. Sen in 1 week. I will see Ms. Adamson again in 2 weeks. 2. Hypertension. 3. Migraine headaches. 4. Coronary artery disease. 5. Chronic kidney disease. 6. Obstructive sleep apnea. 7. Osteoarthritis. Job ID: [id number]
[2018-11-20] MEDS ORDERED: Sodium Chloride 0.9% 15 ML NEB ONE (18:00)
[2018-11-20] MEDS ORDERED: Lidocaine 2% PF 100 mg/5 ml Syringe ONE (18:00)
== END 2018-11-20 08:37 | disposition home or self-care (01) ==
LOC: WCC 08:36
PROVIDERS: ATTEND Family Medicine
DX: S81.802D Unspecified open wound, left lower leg, subsequent encounter (principal); G43.909 Migraine, unspecified, not intractable, without status migrainosus; I25.10 Atherosclerotic heart disease of native coronary artery without angina pectoris; I12.9 Hypertensive chronic kidney disease with stage 1 through stage 4 chronic kidney disease, or unspecified chronic kidney disease; N18.9 Chronic kidney disease, unspecified; G47.33 Obstructive sleep apnea (adult) (pediatric); M19.90 Unspecified osteoarthritis, unspecified site
CPT/HCPCS: A4218; J2001

== ENCOUNTER 2018-11-28 15:30 | Outpatient (CLI) | payer OTHER | END 2018-11-28 15:31 | disposition home or self-care (01) | LOC: WCC 15:30 | PROVIDERS: ATTEND Family Medicine | DX: S81.802D Unspecified open wound, left lower leg, subsequent encounter (principal); I87.312 Chronic venous hypertension (idiopathic) with ulcer of left lower extremity | CPT/HCPCS: 99211; A4218; G0463 ==

== ENCOUNTER 2018-12-01 16:44 | Emergency (ER) | payer OTHER ==
[2018-12-01] MEDS ORDERED: Silver Nitrate Application 1 EACH ONE (16:55)
== END 2018-12-01 17:20 | disposition home or self-care (01) ==
LOC: ERS 16:44
DX: L76.22 Postprocedural hemorrhage of skin and subcutaneous tissue following other procedure (principal); I10 Essential (primary) hypertension; F17.210 Nicotine dependence, cigarettes, uncomplicated; Z79.82 Long term (current) use of aspirin; Z79.02 Long term (current) use of antithrombotics/antiplatelets; Z79.899 Other long term (current) drug therapy
CPT/HCPCS: 99283

== ENCOUNTER 2018-12-05 01:54 | Outpatient (CLI) | payer OTHER ==
[2018-12-05 12:39] LABS: Hemoglobin 13.1 g/dL (12.0-16.0); Mean Corpuscular Hemoglobin 31.1 pg (27.0-31.0); Mean Corpuscular Volume 94.2 fL (78.0-98.0); Mean Platelet Volume 9.4 fL (7.4-10.4); Platelet Count 249 thou/uL (130-400); RBC Distribution Width 13.3 % (11.5-14.5); Red Blood Cell (RBC) Count 4.21 mill/uL (4.20-5.40); White Blood Cell (WBC) Count 6.7 thou/uL (4.8-10.8)
[2018-12-05 13:00] LABS: Anion Gap 13 mmol/L (10-20); BUN (Urea Nitrogen) 18 mg/dL (7.0-18.7); Calc. Creatinine Clearance 0 mL/min (70-130); Calcium 9.6 mg/dL (7.8-10.44); Carbon Dioxide 25 mmol/L (22-29); Chloride 105 mmol/L (98-107); Estimated GFR-MDRD 80; Glucose 81 mg/dL (70-105); Sodium 139 mmol/L (136-145)
== END 2018-12-05 01:55 | disposition home or self-care (01) ==
LOC: LABBT 01:54
PROVIDERS: ATTEND Surgery
DX: Z01.818 Encounter for other preprocedural examination (principal); T14.8XXA Other injury of unspecified body region, initial encounter
CPT/HCPCS: 80048; 85027; 93005; 93010

== ENCOUNTER 2018-12-07 07:55 | Day surgery (SDC) | payer OTHER ==
[2018-12-05 10:53] VITALS: BMI 58.6
[2018-12-07] MEDS ORDERED: Lidocaine 1% w/Epinephrine 1:100K 20 ML VIAL ONE (11:39)
[2018-12-07] MEDS ORDERED: Bacitracin Zinc Ointment 30 gm TUBE ONE (11:39)
[2018-12-07] MEDS ORDERED: Midazolam HCl 2 mg/2 ml Vial ONE (11:42)
[2018-12-07] MEDS ORDERED: Fentanyl 100 MCG/2 ML VIAL ONE ×3 (11:42→12:51)
[2018-12-07] MEDS ORDERED: Lidocaine 1% PF 5 ML VIAL ONE (15:38)
[2018-12-07] MEDS ORDERED: PROPOFOL 200 MG/20 ML VIAL ONE (15:38)
--- NOTE | 2018-12-08 14:42 | OP ---
DATE OF PROCEDURE: 12/07/2018 PREOPERATIVE DIAGNOSIS: Nonhealing wound, left lower extremity. POSTOPERATIVE DIAGNOSIS: Nonhealing wound, left lower extremity. PROCEDURE PERFORMED: Split-thickness skin graft, left lower extremity (donor site left thigh). ANESTHESIA: General. ESTIMATED BLOOD LOSS: Minimal. COMPLICATIONS: None. DESCRIPTION OF PROCEDURE: The patient was taken to the operating room and laid supine on the operating room table. After general anesthetic was obtained, the left lower extremity was prepped and draped in a circumferential fashion. The left lower extremity wound has good granulation tissue. No necrotic tissue. No evidence of infection. The dermatome was used to take a graft donor from the left thigh. This was meshed in a 2:1 fashion using the mesher. Xeroform and sterile dressings were placed over the donor site. The skin graft, which had been mesh was placed over the wound and stapled into place. Vaseline gauze and sterile dressings, including a bolster, were placed at the skin graft site. The size of the graft to inset being a 30 square cm site. The patient was sent to recovery room in stable condition. All instrument counts, needle counts, and lap counts were correct. Job ID: [id number]
== END 2018-12-07 14:05 | disposition home or self-care (01) ==
LOC: SDC 07:55
PROVIDERS: ATTEND Surgery
PROC: 0HRLX74 Replacement of Left Lower Leg Skin with Autologous Tissue Substitute, Partial Thickness, External Approach (ICD-10-PCS; principal; 2018-12-07)
DX: T81.89XD Other complications of procedures, not elsewhere classified, subsequent encounter (principal); Z79.82 Long term (current) use of aspirin; Z79.899 Other long term (current) drug therapy
CPT/HCPCS: J0690; J2001; J2250; J2704; J3010

== ENCOUNTER 2019-02-09 09:57 | Outpatient (CLI) | payer OTHER ==
--- NOTE | 2019-02-09 12:58 | MRI ---
MRI Lower Ext Jt Rt WO Con History: M 25.561 lateral joint tenderness Comparison: Knee radiograph August 2018 Findings: Medial meniscus: Mild intrameniscal degeneration with 2 mm medial gutter extrusion. Lateral meniscus: Mild free edge fraying without displaced tear. Incomplete discoid lateral meniscus. ACL and PCL are intact. Abnormal thickening of the medial collateral ligament. Extensor mechanism: Mild trochlear dysplasia. Quadriceps tendon, patella, and patellar tendon are int act. Cartilage: Patellofemoral compartment: Multifocal full-thickness cartilage fissuring and fraying of the patellar apex and medial and lateral patellar facets with subcortical cyst formation. There is also multifocal grade III chondromalacia of the trochlea. Medial compartment: No full-thickness defect Lateral compartment: No full-thickness defect Soft tissues: Small to moderate joint effusion. Mild synovitis. Muscles: Muscle signal and bulk is normal. There is mild pes anserine bursa effusion. Impression: 1. Mild pes anserine bursitis. 2. Mild thickening of the medial collateral ligament with low-grade proximal tearing, likely chronic in nature from valgus stress. 3. 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 4. 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
== END 2019-02-09 09:58 | disposition home or self-care (01) ==
LOC: TBSIIMAG 09:57
PROVIDERS: ATTEND Pediatrics Sports Medicine
DX: M25.561 Pain in right knee (principal); S83.206A Unspecified tear of unspecified meniscus, current injury, right knee, initial encounter; Q68.6 Discoid meniscus; M71.561 Other bursitis, not elsewhere classified, right knee; S83.011A Lateral subluxation of right patella, initial encounter; M22.41 Chondromalacia patellae, right knee

== ENCOUNTER 2020-04-23 09:15 | Outpatient (CLI) | payer OTHER | END 2020-04-23 09:16 | disposition home or self-care (01) | LOC: DTY/OP 09:15 | PROVIDERS: ATTEND Surgery | DX: E66.01 Morbid (severe) obesity due to excess calories (principal) | CPT/HCPCS: 97802 ==

== ENCOUNTER 2021-11-17 10:50 | Outpatient (CLI) | payer OTHER | END 2021-11-17 10:51 | disposition home or self-care (01) | LOC: MRI 10:50 | PROVIDERS: ATTEND General Practice | DX: R42 Dizziness and giddiness (principal) | CPT/HCPCS: 70553 ==

== ENCOUNTER 2022-07-07 17:08 | Emergency (ER) | payer OTHER | END 2022-07-07 17:48 | disposition home or self-care (01) | LOC: ERS 17:08 | DX: L60.0 Ingrowing nail (principal) | CPT/HCPCS: 99282 ==

== ENCOUNTER 2022-07-28 11:41 | Emergency (ER) | payer OTHER ==
[2022-07-28 12:13] LABS: #Eosinphils 0.1 thou/uL (0.0-0.7); #Lymphocytes 1.7 thou/uL (1.20-3.40); #Monocytes 0.3 thou/uL (0.11-0.59); #Neutrophils 4.1 thou/uL (1.40-6.50); %Basophils 0.7 % (0.0-1.0); %Eosinophils 1.4 % (0.0-10.0); %Lymphocytes 26.7 % (21.0-51.0); %Monocytes 5.2 % (0.0-10.0); Hemoglobin 14.7 g/dL (12.0-16.0); Mean Corpuscular HGB CONC 34.1 g/dL (32.0-36.0); Mean Corpuscular Hemoglobin 32.3 pg (27.0-31.0); Mean Corpuscular Volume 94.8 fl (78.0-98.0); Mean Platelet Volume 9.8 fL (7.4-10.4); Platelet Count 163 10x3/uL (130-400); RBC Distribution Width 12.3 % (11.5-14.5); Red Blood Cell (RBC) Count 4.55 mill/uL (4.20-5.40); White Blood Cell (WBC) Count 6.2 10x3/uL (4.8-10.8)
[2022-07-28 12:32] LABS: ALT (SGPT) 13 U/L (8-55); AST (SGOT) 18 U/L (5-34); Alkaline Phosphatase 94 U/L (40-110); Anion Gap 14 mmol/L (10-20); BUN (Urea Nitrogen) 15 mg/dL (7.0-18.7); Bilirubin, Total 0.5 mg/dL (0.2-1.2); Calc. Creatinine Clearance 0 mL/min (70-130); Calcium 9.7 mg/dL (7.8-10.44); Carbon Dioxide 25 mmol/L (22-29); Chloride 103 mmol/L (98-107); Estimated GFR 86; Globulin 3.2 g/dL (2.4-3.5); Glucose 119 mg/dL (70-105); Potassium 3.5 mmol/L (3.5-5.1); Protein, Total 7.2 g/dL (6.0-8.3); Sodium 138 mmol/L (136-145)
[2022-07-28] MEDS ORDERED: Acetaminophen 500 MG TAB ONE (14:03)
[2022-07-28] MEDS ORDERED: Meclizine HCl 25 MG TAB ONE (16:21)
[2022-07-28] MEDS ORDERED: Ondansetron ODT 4 MG TAB ONE (16:21)
== END 2022-07-28 16:40 | disposition home or self-care (01) ==
LOC: ERS 11:41
DX: R42 Dizziness and giddiness (principal); I10 Essential (primary) hypertension; E78.5 Hyperlipidemia, unspecified; F17.210 Nicotine dependence, cigarettes, uncomplicated; Z79.899 Other long term (current) drug therapy
CPT/HCPCS: 36415; 71045; 80053; 84484; 85025; 93005; Q0162

== ENCOUNTER 2022-11-01 10:40 | Emergency (ER) | payer OTHER ==
[2022-11-01 11:26] LABS: Bilirubin Negative (Negative); Blood, Urine Negative (Negative); Clarity Clear (Clear); Glucose, Urine (Dipstick) Normal (Negative); Ketone, Urine Negative (Negative); Leukocyte Negative Leu/uL (Negative); Nitrite Negative (Negative); Protein, Urine (Dipstick) Negative (Neg-Trace); Specific Gravity, Urine 1.005 (1.002-1.036); Urobilinogen Normal mg/dL (Less than 2); pH, Urine 5.5 (5.0-9.0)
[2022-11-01] MEDS ORDERED: Ketorolac Tromethamine 30 MG/ML VIAL ONE (13:01)
== END 2022-11-01 14:17 | disposition home or self-care (01) ==
LOC: ERS 10:40
DX: M62.830 Muscle spasm of back (principal); M54.50 Low back pain, unspecified; I10 Essential (primary) hypertension; E78.5 Hyperlipidemia, unspecified; F17.210 Nicotine dependence, cigarettes, uncomplicated; Z79.899 Other long term (current) drug therapy
CPT/HCPCS: 81003; 96372; 99283; J1885

== ENCOUNTER 2023-01-17 11:27 | Observation (INO) | payer OTHER ==
[2023-01-17 12:23] LABS: #Eosinphils 0.1 thou/uL (0.0-0.7); #Monocytes 0.4 thou/uL (0.11-0.59); #Neutrophils 5.1 thou/uL (1.40-6.50); %Basophils 0.5 % (0.0-1.0); %Eosinophils 1.3 % (0.0-10.0); %Lymphocytes 27.5 % (21.0-51.0); %Monocytes 4.8 % (0.0-10.0); %Neutrophils 65.8 % (42.0-75.0); Hemoglobin 13.9 g/dL (12.0-16.0); Mean Corpuscular HGB CONC 34.4 g/dL (32.0-36.0); Mean Corpuscular Hemoglobin 31.8 pg (27.0-31.0); Mean Corpuscular Volume 92.4 fl (78.0-98.0); Mean Platelet Volume 11.7 fL (7.4-10.4); Platelet Count 196 10x3/uL (130-400); RBC Distribution Width 13.5 % (11.5-14.5); Red Blood Cell (RBC) Count 4.37 mill/uL (4.20-5.40); White Blood Cell (WBC) Count 7.7 10x3/uL (4.8-10.8)
[2023-01-17 12:40] LABS: ALT (SGPT) 18 U/L (8-55); AST (SGOT) 20 U/L (5-34); Albumin 4.2 g/dL (3.5-5.0); Alkaline Phosphatase 80 U/L (40-110); Anion Gap 14 mmol/L (10-20); BUN (Urea Nitrogen) 14 mg/dL (7.0-18.7); Bilirubin, Total 0.4 mg/dL (0.2-1.2); CK (CPK) 154 U/L (29-168); Calc. Creatinine Clearance 0 mL/min (70-130); Carbon Dioxide 26 mmol/L (22-29); Chloride 106 mmol/L (98-107); Estimated GFR 80; Globulin 2.8 g/dL (2.4-3.5); Glucose 102 mg/dL (70-105); Lipase 18 U/L (8-78); Potassium 3.3 mmol/L (3.5-5.1); Sodium 143 mmol/L (136-145)
[2023-01-17 13:15] LABS: Bacteria/HPF None Seen HPF (None Seen); Bilirubin Negative (Negative); Blood, Urine Negative (Negative); CAUTI Indications for Culture Alt mental st,lethar; Clarity Clear (Clear); Glucose, Urine (Dipstick) Normal (Negative); Ketone, Urine Negative (Negative); Leukocyte Negative Leu/uL (Negative); Nitrite Negative (Negative); Protein, Urine (Dipstick) Negative (Neg-Trace); RBC/HPF 0-3 HPF (0-3); Specific Gravity, Urine 1.015 (1.002-1.036); Squamous Epithelial 0-3 HPF (0-3); Urobilinogen Normal mg/dL (Less than 2); WBC/HPF 0-3 HPF (0-3)
[2023-01-17 13:17] LABS: Urine Culture Reflex No No
[2023-01-17] MEDS ORDERED: Meclizine HCl 25 MG TAB ONE (13:50)
[2023-01-17] MEDS ORDERED: Aspirin Chewable 81 MG TAB ONE (13:50)
[2023-01-17] MEDS ORDERED: Potassium Chloride 20 MEQ TAB ONE (13:50)
[2023-01-17 15:29] LABS: Troponin I 0.011 ng/mL (< 0.028)
[2023-01-17] MEDS ORDERED: Acetaminophen 325 MG TAB PO PRN (16:22)
[2023-01-17] MEDS ORDERED: Guaifenesin DM 100-10/5 ML UDCUP PO PRN (16:22)
[2023-01-17] MEDS ORDERED: Diclofenac 1% 100 GM GEL TP PRN (16:33)
[2023-01-17] MEDS ORDERED: traZODone HCl 50 MG TAB PO PRN (17:18)
[2023-01-17] MEDS ORDERED: Meclizine HCl 25 MG TAB PO PRN (17:18)
[2023-01-17] MEDS ORDERED: Acetaminophen/Codeine 30-300mg Tablet PO PRN (17:37)
[2023-01-17 18:02] VITALS: BMI 52.2
[2023-01-17 18:28] LABS: Hemoglobin A1c 5.4 % (4.0-6.0)
[2023-01-17] MEDS: Ipratropium/Albuterol 3 ML NEB NEB SCH ×2 (18:30→22:00)
[2023-01-17] MEDS: Budesonide 0.5 MG/2 ML NEB NEB SCH (18:30)
[2023-01-17 18:43] LABS: Phosphorus 3.1 mg/dL (2.3-4.7)
[2023-01-17 18:49] LABS: Troponin I Less than 0.010 ng/mL (< 0.028)
[2023-01-17] MEDS: Gabapentin 300 MG CAP PO SCH (19:59)
[2023-01-17] MEDS: busPIRone HCl 10 MG TAB PO SCH (20:00)
[2023-01-17] MEDS ORDERED: clonazePAM 1 MG TAB PO SCH (21:00)
[2023-01-17] MEDS ORDERED: Rosuvastatin 20 MG TAB PO SCH (21:00)
[2023-01-17] MEDS ORDERED: Atorvastatin Calcium 40 MG TAB PO SCH (21:00)
[2023-01-17] MEDS ORDERED: Prazosin HCl 1 MG CAP PO SCH (21:00)
[2023-01-17 21:06] LABS: Troponin I Less than 0.010 ng/mL (< 0.028)
[2023-01-18] MEDS: Ipratropium/Albuterol 3 ML NEB NEB SCH ×4 (02:30→14:00)
[2023-01-18 05:42] LABS: #Basophils 0.1 thou/uL (0.0-0.2); #Eosinphils 0.2 thou/uL (0.0-0.7); #Monocytes 0.5 thou/uL (0.11-0.59); #Neutrophils 3.3 thou/uL (1.40-6.50); %Basophils 0.8 % (0.0-1.0); %Eosinophils 2.4 % (0.0-10.0); %Lymphocytes 36.5 % (21.0-51.0); %Monocytes 7.3 % (0.0-10.0); %Neutrophils 52.8 % (42.0-75.0); Mean Corpuscular HGB CONC 32.9 g/dL (32.0-36.0); Mean Corpuscular Hemoglobin 30.4 pg (27.0-31.0); Mean Corpuscular Volume 92.4 fl (78.0-98.0); Mean Platelet Volume 11.4 fL (7.4-10.4); Platelet Count 171 10x3/uL (130-400); RBC Distribution Width 13.5 % (11.5-14.5); Red Blood Cell (RBC) Count 4.61 mill/uL (4.20-5.40); White Blood Cell (WBC) Count 6.2 10x3/uL (4.8-10.8)
[2023-01-18 06:26] LABS: Anion Gap 12 mmol/L (10-20); BUN (Urea Nitrogen) 15 mg/dL (7.0-18.7); Calc. Creatinine Clearance 206 mL/min (70-130); Calcium 9.3 mg/dL (7.8-10.44); Carbon Dioxide 24 mmol/L (22-29); Cardiac Risk 2.4 (Less than 4.5); Chloride 113 mmol/L (98-107); Cholesterol 105 mg/dl (< 200 Desired); Estimated GFR 93; Glucose 94 mg/dL (70-105); HDL Cholesterol 44 mg/dL (>60 Neg Risk); LDL Cholesterol, Calculated 50 mg/dL; Potassium 3.9 mmol/L (3.5-5.1); Sodium 145 mmol/L (136-145); Triglycerides 53 mg/dL (Less than 150)
[2023-01-18] MEDS: Budesonide 0.5 MG/2 ML NEB NEB SCH ×2 (06:55→06:56)
[2023-01-18] MEDS: Gabapentin 300 MG CAP PO SCH ×2 (08:38→14:49)
[2023-01-18] MEDS: Venlafaxine HCl XR 150 MG CAP PO SCH ×2 (08:39→08:40)
[2023-01-18] MEDS: busPIRone HCl 10 MG TAB PO SCH (08:39)
[2023-01-18] MEDS ORDERED: Clopidogrel Bisulfate 75 MG TAB PO SCH (09:00)
[2023-01-18] MEDS ORDERED: Aspirin Chewable 81 MG TAB PO SCH (09:00)
[2023-01-18] MEDS ORDERED: Fluticasone Propionate Nasal Spray 16 gm Bottle NASAL SCH (09:00)
[2023-01-18] MEDS ORDERED: Topiramate 100 MG TAB PO SCH (09:00)
[2023-01-18] MEDS ORDERED: Ezetimibe 10 MG TAB PO SCH (09:00)
[2023-01-18] MEDS ORDERED: Furosemide 40 MG TAB PO SCH (09:00)
[2023-01-18 11:51] VITALS: BP 115/67; TEMP 98.1
== END 2023-01-18 15:01 | disposition home or self-care (01) ==
LOC: ERS 11:27 → 2SW 17:04
PROVIDERS: ADMIT Student in an Organized Health Care Education/Training Program; ATTEND Student in an Organized Health Care Education/Training Program
DX: R07.89 Other chest pain (principal); J44.9 Chronic obstructive pulmonary disease, unspecified; I95.9 Hypotension, unspecified; E87.6 Hypokalemia; E78.5 Hyperlipidemia, unspecified; I25.10 Atherosclerotic heart disease of native coronary artery without angina pectoris; G47.33 Obstructive sleep apnea (adult) (pediatric); J30.9 Allergic rhinitis, unspecified; M17.0 Bilateral primary osteoarthritis of knee; E66.01 Morbid (severe) obesity due to excess calories; F43.10 Post-traumatic stress disorder, unspecified; F34.1 Dysthymic disorder; F41.0 Panic disorder [episodic paroxysmal anxiety]; Z79.02 Long term (current) use of antithrombotics/antiplatelets; Z79.899 Other long term (current) drug therapy; Z90.710 Acquired absence of both cervix and uterus; Z98.51 Tubal ligation status; Z95.5 Presence of coronary angioplasty implant and graft; Z68.53 Body mass index [BMI] pediatric, 85th percentile to less than 95th percentile for age
CPT/HCPCS: 36415; 70450; 71045; 80048; 80053; 80061; 81001; 82550; 83036; 83690; 83735; 84100; 84443; 84484; 85025; 93005; 93306; 94640; 94760; 96372; G0378; J1650; J7620; J7626

== ENCOUNTER 2023-02-03 15:14 | Outpatient (CLI) | payer OTHER | END 2023-02-03 15:15 | disposition home or self-care (01) | LOC: BICMAMMO 15:14 | PROVIDERS: ATTEND General Practice | DX: Z12.31 Encounter for screening mammogram for malignant neoplasm of breast (principal) | CPT/HCPCS: 77067 ==

== ENCOUNTER 2023-04-16 23:19 | Emergency (ER) | payer OTHER ==
[2023-04-17 00:39] LABS: #Eosinphils 0.1 thou/uL (0.0-0.7); #Monocytes 0.5 thou/uL (0.11-0.59); #Neutrophils 6.3 thou/uL (1.40-6.50); %Basophils 0.4 % (0.0-1.0); %Eosinophils 0.8 % (0.0-10.0); %Lymphocytes 22.3 % (21.0-51.0); %Monocytes 5.7 % (0.0-10.0); %Neutrophils 70.4 % (42.0-75.0); Hematocrit 45.3 % (36.0-47.0); Hemoglobin 14.4 g/dL (12.0-16.0); Mean Corpuscular HGB CONC 31.8 g/dL (32.0-36.0); Mean Corpuscular Volume 97.6 fl (78.0-98.0); Mean Platelet Volume 11.8 fL (7.4-10.4); Platelet Count 178 10x3/uL (130-400); RBC Distribution Width 13.6 % (11.5-14.5); Red Blood Cell (RBC) Count 4.64 mill/uL (4.20-5.40); White Blood Cell (WBC) Count 8.9 10x3/uL (4.8-10.8)
[2023-04-17 00:46] LABS: BHCG - Serum Negative (NEGATIVE); Pregs Control Background? CLEAR/WHITE (CLR/WHITE); Pregs Control Bar Appear? YES (CONTROL BAR)
[2023-04-17 01:03] LABS: ALT (SGPT) 15 U/L (8-55); AST (SGOT) 15 U/L (5-34); Albumin 3.8 g/dL (3.5-5.0); Alkaline Phosphatase 101 U/L (40-110); Anion Gap 10 mmol/L (10-20); BUN (Urea Nitrogen) 18 mg/dL (7.0-18.7); Bilirubin, Total 0.2 mg/dL (0.2-1.2); Calc. Creatinine Clearance 0 mL/min (70-130); Calcium 9.4 mg/dL (7.8-10.44); Carbon Dioxide 27 mmol/L (22-29); Chloride 113 mmol/L (98-107); Estimated GFR 74; Globulin 2.5 g/dL (2.4-3.5); Glucose 133 mg/dL (70-105); Potassium 3.9 mmol/L (3.5-5.1); Protein, Total 6.3 g/dL (6.0-8.3); Sodium 146 mmol/L (136-145)
[2023-04-17 01:05] LABS: Troponin I Less than 0.010 ng/mL (< 0.028)
[2023-04-17] MEDS ORDERED: Iopamidol-370 76% 500 ML MDV (1 ML CHARGE) ONE (10:15)
== END 2023-04-17 04:37 | disposition home or self-care (01) ==
LOC: ERS 23:19
DX: S09.90XA Unspecified injury of head, initial encounter (principal); R55 Syncope and collapse; J18.9 Pneumonia, unspecified organism; I31.39 Other pericardial effusion (noninflammatory); I10 Essential (primary) hypertension; E78.5 Hyperlipidemia, unspecified; F17.210 Nicotine dependence, cigarettes, uncomplicated; W18.30XA Fall on same level, unspecified, initial encounter
CPT/HCPCS: 36415; 70450; 71045; 71275; 80053; 84484; 84703; 85025; 93005; 96360; 96361; Q9967

== ENCOUNTER 2023-05-23 09:52 | Emergency (ER) | payer OTHER ==
[2023-05-23] MEDS ORDERED: HYDROcodone/Acetaminophen 5/325 mg Tablet ONE (10:57)
== END 2023-05-23 12:48 | disposition home or self-care (01) ==
LOC: ERS 09:52
DX: S40.011A Contusion of right shoulder, initial encounter (principal); S50.01XA Contusion of right elbow, initial encounter; I10 Essential (primary) hypertension; E78.5 Hyperlipidemia, unspecified; F17.210 Nicotine dependence, cigarettes, uncomplicated; Z79.899 Other long term (current) drug therapy; W23.1XXA Caught, crushed, jammed, or pinched between stationary objects, initial encounter